=== PATIENT | male | born 1970 | race Caucasian/White ===

== ENCOUNTER → 2019-10-12 | Outpatient (CLI) | payer OTHER | END | disposition home or self-care (01) | LOC: OIH 11:07 | PROVIDERS: ATTEND Internal Medicine Cardiovascular Disease | DX: Z13.6 Encounter for screening for cardiovascular disorders (principal) | CPT/HCPCS: 75571 ==

== ENCOUNTER 2020-04-13 22:15 | Inpatient (IN) | payer BC, OTHER ==
[~2020-04-13] VITALS: Ht 175.3 cm; Wt 112.8 kg
[2020-04-13 23:36] LABS: BASOPHILS % (AUTO) 0.2 % (0.0-5.0); EOSINOPHILS % (AUTO) 0.1 % (0.0-8.0); HEMATOCRIT 43.4 % (42-54); LYMPHOCYTES % (AUTO) 8.4 % (21.0-51.0); MEAN CORPUSCULAR HEMOGLOBIN 26.8 pg (27.0-33.0); MEAN CORPUSCULAR HGB CONC 33.2 g/dL (32.0-36.0); MEAN CORPUSCULAR VOLUME 80.7 fL (79-99); MONOCYTES % (AUTO) 6.4 % (3.0-13.0); NEUTROPHILS % (AUTO) 84.2 % (40.0-77.0); PLATELET COUNT (AUTO) 228 K/uL (130-400); RED BLOOD CELL COUNT(AUTO) 5.38 MIL/uL (4.50-6.20); RED CELL DISTRIBUTION WIDTH 15.9 % (11.0-15.5)
[2020-04-14] MEDS ORDERED: CEFTRIAXONE SODIUM 2 GM VIAL ONE (00:01)
[2020-04-14] MEDS ORDERED: SODIUM CHLORIDE 0.9% 100 ML IV ONE (00:02)
[2020-04-14] MEDS ORDERED: DEXAMETHASONE SOD PHOSPHATE 10MG/ML 1ML VIAL ONE (00:04)
[2020-04-14 00:05] LABS: ALBUMIN 3.5 g/dL (3.5-5.0); BILIRUBIN,TOTAL 0.5 mg/dL (0.2-1.0); CREATININE 1.1 mg/dL (0.5-1.5)
[2020-04-14 00:08] LABS: POTASSIUM 2.6 mmol/L (3.5-5.1)
[2020-04-14 00:44] LABS: INR 0.89 (0.85-1.15); PARTIAL THROMBOPLASTIN TIME 34.8 SEC (26.3-35.5); PROTHROMBIN TIME 9.7 SEC (9.6-11.6)
[2020-04-14 00:45] LABS: ABG BASE EXCESS -1.1 mmol/L (-2.0-3.0); ABG HCO3 22.4 mmol/L (21.0-28.0); ABG OXYGEN SATURATION 95.6 % (95.0-99.0); ABG PCO2 34 mmHg (35-48)
[2020-04-14] MEDS ORDERED: POTASSIUM BICARB/CIT AC 25 MEQ TABLET.EFF ONE (00:47)
[2020-04-14] MEDS ORDERED: AZITHROMYCIN 500MG+NS 250ML 250 ML IV ONE (00:47)
[2020-04-14] MEDS ORDERED: SODIUM CHLORIDE 0.9% 500ML 500 ML IV ONE (00:48)
[2020-04-14 00:57] LABS: APPEARANCE,URINE Clear (CLEAR); BILIRUBIN,URINE Negative (NEGATIVE); COLOR,URINE Yellow (YELLOW); GLUCOSE, URINE (UA) Negative (NEGATIVE); KETONES,URINE Trace mg/dL (NEGATIVE); LEUKOCYTE ESTERASE ,URINE Negative (NEGATIVE); NITRATE,URINE Negative (NEGATIVE); OCCULT BLOOD,URINE Negative (NEGATIVE); PH,URINE 5.5 (5.0-8.0); PROTEIN,URINE POS 1+ mg/dL (NEGATIVE)
[2020-04-14] MEDS ORDERED: ONDANSETRON HCL 4 MG/2 ML VIAL ONE (01:20)
[2020-04-14 01:29] LABS: BACTERIA,URINE Few /HPF (None Seen); MUCUS,URINE Few LPF (None Seen); RBC,URINE 0-1 /HPF (0-1); SQUAMOUS EPITHELIAL CELL,UR 0-2 /HPF (0-2)
[2020-04-14] MEDS ORDERED: IOHEXOL-350 75 ML VIAL IV ONE (01:49)
[2020-04-14] MEDS ORDERED: CALCIUM CARBON 500MG CHEW TAB ONE (03:02)
[2020-04-14] MEDS ORDERED: DOXYCYCLINE 100MG+NS 250ML IV SCH (04:15)
[2020-04-14] MEDS: CEFTRIAXONE SODIUM 1 GM IVP SCH ×2 (04:15→16:15)
[2020-04-14] MEDS ORDERED: ACETAMINOPHEN 325 MG TAB PO PRN (04:15)
[2020-04-14] MEDS ORDERED: ERGOCALCIFEROL (VITAMIN D2) 50,000 UNIT CAPSULE PO SCH (04:15)
[2020-04-14] MEDS ORDERED: ALBUTEROL INHALER 90MCG/INH IH ONE (04:18)
[2020-04-14] MEDS ORDERED: DOXYCYCLINE 100MG+NS 250ML 250 ML IV ONE ×2 (04:22→16:17)
[2020-04-14] MEDS ORDERED: ERGOCALCIFEROL (VITAMIN D2) 50,000 UNIT CAPSULE ONE (04:22)
[2020-04-14] MEDS ORDERED: METHYLPREDNISOLONE SOD SUCC 40MG/ML 1ML ONE ×3 (04:24→19:17)
[2020-04-14] MEDS ORDERED: POTASSIUM CHLORIDE 10MEQ/100ML 100 ML IV PRN (04:45)
[2020-04-14] MEDS ORDERED: LIDOCAINE HCL-MPF 1% 2ML VIAL IV PRN (04:45)
[2020-04-14] MEDS ORDERED: POTASSIUM CHLORIDE 20 MEQ ERTAB PO PRN (04:45)
[2020-04-14] MEDS ORDERED: MAGNESIUM 2GM PREMIX 50ML 50 ML IV PRN (04:45)
[2020-04-14] MEDS ORDERED: POTASSIUM CHLORIDE 10% ELIXIR 20 MEQ/15 ML UDCUP PO PRN (04:45)
[2020-04-14 05:34] LABS: BASOPHILS % (AUTO) 0.1 % (0.0-5.0); HEMATOCRIT 42.8 % (42-54); LYMPHOCYTES % (AUTO) 5.5 % (21.0-51.0); MEAN CORPUSCULAR HEMOGLOBIN 26.8 pg (27.0-33.0); MEAN CORPUSCULAR HGB CONC 32.9 g/dL (32.0-36.0); MEAN CORPUSCULAR VOLUME 81.2 fL (79-99); MONOCYTES % (AUTO) 2.3 % (3.0-13.0); NEUTROPHILS % (AUTO) 91.2 % (40.0-77.0); PLATELET COUNT (AUTO) 224 K/uL (130-400); RED BLOOD CELL COUNT(AUTO) 5.27 MIL/uL (4.50-6.20); RED CELL DISTRIBUTION WIDTH 15.7 % (11.0-15.5); WHITE BLOOD COUNT (AUTO) 10.3 K/uL (4.8-10.8)
[2020-04-14 06:05] LABS: ALBUMIN 3.2 g/dL (3.5-5.0); BILIRUBIN,TOTAL 0.4 mg/dL (0.2-1.0); CRP QUANTITATIVE 119.1 mg/L (0.00-9.0); POTASSIUM 3.4 mmol/L (3.5-5.1); TOTAL PROTEIN, SERUM 7.8 g/dL (6.0-8.3)
[2020-04-14] MEDS: ASCORBIC ACID 500 MG TAB PO SCH (09:00)
[2020-04-14] MEDS: METHYLPREDNISOLONE SOD SUCC 40MG/ML 1ML IVP SCH ×3 (09:00→20:12)
[2020-04-14] MEDS: ENOXAPARIN SODIUM 40 MG/0.4 ML SYRINGE SQ SCH (09:00)
[2020-04-14] MEDS: DOXYCYCLINE 100MG+NS 250ML 250 ML IV SCH ×2 (09:00→20:24)
[2020-04-14] MEDS: FAMOTIDINE/PF 20 MG/2 ML VIAL IV SCH ×2 (09:00→20:13)
[2020-04-14] MEDS: ACETYLCYSTEINE 600 MG CAPSULE PO SCH ×2 (09:00→21:31)
[2020-04-14] MEDS: ZINC SULFATE 220 CAPSULE PO SCH (09:00)
[2020-04-14] MEDS ORDERED: ASCORBIC ACID 500 MG TAB ONE (09:06)
[2020-04-14] MEDS ORDERED: ACETYLCYSTEINE 600 MG CAPSULE ONE (09:07)
[2020-04-14] MEDS ORDERED: POTASSIUM CHLORIDE 20 MEQ ERTAB PO ONE (09:07)
[2020-04-14] MEDS ORDERED: ENOXAPARIN SODIUM 40 MG/0.4 ML SYRINGE SQ ONE (09:07)
[2020-04-14] MEDS ORDERED: ZINC SULFATE 220 CAPSULE ONE (09:07)
[2020-04-14] MEDS ORDERED: FAMOTIDINE/PF 20 MG/2 ML VIAL IV ONE ×2 (09:08→19:18)
[2020-04-14] MEDS ORDERED: CEFTRIAXONE SODIUM 1 GM ONE (12:21)
[2020-04-14] MEDS ORDERED: GUAIFENESIN-CODEINE 5 ML SYRUP ONE (12:39)
[2020-04-14] MEDS ORDERED: IVERMECTIN 3 MG TAB PO SCH (14:15)
[2020-04-14 20:05] VITALS: BP 165/78
[2020-04-14] MEDS: DOXYCYCLINE HYCLATE 100 MG TABLET PO SCH (21:28)
[2020-04-14 23:54] VITALS: BP 166/86
[2020-04-15] VITALS (7 sets, daily range): BP systolic 133–162; BP diastolic 67–96
[2020-04-15] MEDS ORDERED: OMEP20CA12 PO (00:08)
[2020-04-15] MEDS ORDERED: FERR325T22 PO (00:08)
[2020-04-15] MEDS ORDERED: AMLO5TAB9 PO (00:08)
[2020-04-15] MEDS ORDERED: BENZ-51 PO (00:08)
[2020-04-15] MEDS ORDERED: SIMV-46 PO (00:08)
[2020-04-15] MEDS: BENZONATATE 100 MG CAPSULE PO SCH ×4 (00:19→21:54)
[2020-04-15] MEDS: HYDRALAZINE HCL 20 MG/ML VIAL IV PRN ×2 (00:19→03:36)
--- NOTE | 2020-04-15 03:30 | NUR ---
STATUS UPDATE PT APPEARS RELAXED,AWAKE ,HR FLUCTUATES BETWEEN 105-140,DENIES ACUTE DISCOMFORT,DENIES PALPITATIONS, NOTED INHALER AT BEDSIDE,PT REPORTED HAVING TO USE 3PUFFS IN LESS THAN 2-3HOUR INTERVALS.ADVISED/INSTRUCTED PT NOT TO USE MEDICATIONS NOT INCLUDED IN REGIMEN PROVIDED BY MD. PT REITERATED THOUGH THAT HE WAS INSTRUCTED IN ER TO USE IF NECESSARY FOR SOB,UNCLEAR OTHERWISE IF FREQUENCY AND DOSAGE WAS EXPLAINED. EKG DONE PER PROTOCOL TO CONFIRM IRREGULAR HR. 0440 MD INFORMED OF PT STATUS WITH ORDERS. 0446 METOPROLOL 25MG PO BID SCHEDULED.STARTED A.M. DOSE AT THIS TIME WITH CLEARANCE FROM MD. TOLERATED BY PT. WILL CONTINUE TO MONITOR. NO ACUTE DISTRESS Addendum: 04/15/20 at 0511 by LARA BLOOD RN RN Amended: Links added.
[2020-04-15] MEDS: CEFTRIAXONE SODIUM 1 GM IVP SCH ×2 (03:46→21:54)
[2020-04-15] MEDS ORDERED: METOPROLOL TARTRATE 25 MG TAB ONE (04:46)
--- NOTE | 2020-04-15 05:12 | NUR ---
STATUS RECHECKED HR 107-114 AT THIS TIME ,PT RELAXED NO FURTHER COMPLAINTS.PT VERBALIZED UNDERSTANDING TO INFORM STAFF PRIOR TO TAKING ANY HOME REMEDIES AND REFRAIN FROM TAKING MEDICATIONS NOT PRESCRIBED IN MD POC
[2020-04-15 06:16] LABS: BASOPHILS % (AUTO) 0.2 % (0.0-5.0); EOSINOPHILS % (AUTO) 0.4 % (0.0-8.0); HEMATOCRIT 44.8 % (42-54); LYMPHOCYTES % (AUTO) 4.9 % (21.0-51.0); MEAN CORPUSCULAR HEMOGLOBIN 26.6 pg (27.0-33.0); MEAN CORPUSCULAR HGB CONC 32.4 g/dL (32.0-36.0); MEAN CORPUSCULAR VOLUME 82.1 fL (79-99); MONOCYTES % (AUTO) 5.5 % (3.0-13.0); NEUTROPHILS % (AUTO) 86.1 % (40.0-77.0); PLATELET COUNT (AUTO) 328 K/uL (130-400); RED BLOOD CELL COUNT(AUTO) 5.46 MIL/uL (4.50-6.20); RED CELL DISTRIBUTION WIDTH 16.1 % (11.0-15.5); WHITE BLOOD COUNT (AUTO) 21.5 K/uL (4.8-10.8)
[2020-04-15 06:46] LABS: ALBUMIN 3.3 g/dL (3.5-5.0); BILIRUBIN,TOTAL 0.3 mg/dL (0.2-1.0); CRP QUANTITATIVE 63.5 mg/L (0.00-9.0); POTASSIUM 3.7 mmol/L (3.5-5.1); TOTAL PROTEIN, SERUM 7.8 g/dL (6.0-8.3)
[2020-04-15] MEDS: METOPROLOL TARTRATE 25 MG TAB PO SCH ×2 (07:42→21:54)
[2020-04-15] MEDS: ACETAMINOPHEN 325 MG TAB PO PRN (07:52)
[2020-04-15] MEDS: METHYLPREDNISOLONE SOD SUCC 40MG/ML 1ML IVP SCH ×3 (08:11→21:54)
[2020-04-15] MEDS: FERROUS SULFATE 325 MG TABLET.DR PO SCH (08:11)
[2020-04-15] MEDS: DOXYCYCLINE HYCLATE 100 MG TABLET PO SCH ×2 (08:11→21:54)
[2020-04-15] MEDS: AMLODIPINE BESYLATE 5 MG TAB PO SCH (08:11)
[2020-04-15] MEDS: FAMOTIDINE/PF 20 MG/2 ML VIAL IV SCH ×2 (08:11→21:54)
[2020-04-15] MEDS: ENOXAPARIN SODIUM 40 MG/0.4 ML SYRINGE SQ SCH (08:12)
[2020-04-15] MEDS: ZINC SULFATE 220 CAPSULE PO SCH (08:12)
[2020-04-15] MEDS: ASCORBIC ACID 500 MG TAB PO SCH (08:12)
[2020-04-15] MEDS: ACETYLCYSTEINE 600 MG CAPSULE PO SCH ×3 (08:27→22:37)
[2020-04-15] MEDS ORDERED: BENZONATATE 100 MG CAPSULE PO SCH (10:30)
[2020-04-15] MEDS ORDERED: PHARMACY COMMUNICATION***REMDESIVIR ORDER MISC SCH (15:00)
[2020-04-15] MEDS ORDERED: PHARMACY COMMUNICATION MISC SCH (15:30)
[2020-04-15] MEDS ORDERED: REMDESIVIR (EUA) 520 200 MG in SODIUM CHLORIDE 0.9% 250 ML IV SCH (16:00)
--- NOTE | 2020-04-15 16:33 | NUR ---
INITIAL SW spoke with patient's spouse. Patient lives with spouse. He has no home services. DME: glucometer (no insulin), nebulizer, BPM. Patient is independent with ADL's and drives. 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 PCP is Dr. Rg Fall. Pharmacy is [facility] located on [facility]. DCP is home. Addendum: 04/15/20 at 1635 by CLOVER SÁNCHEZ SS Amended: Links added.
[2020-04-15 18:29] LABS: ABG BASE EXCESS 1.5 mmol/L (-2.0-3.0); ABG HCO3 24.8 mmol/L (21.0-28.0); ABG OXYGEN SATURATION 93.7 % (95.0-99.0); ABG PCO2 35 mmHg (35-48)
--- NOTE | 2020-04-15 20:45 | NUR ---
REPORT RECEIVED REPORT FROM LEESA ELDRIDGE. SEEN PT ON VIDEO AND NOTED TO BE ON 100% NON-REBREATHER. PT STILL WITH SOB EVEN AT REST. WILL MONITOR CLOSELY. Addendum: 04/15/20 at 2322 by JW DURAN RN RN Amended: Links added.
--- NOTE | 2020-04-15 21:54 | NUR ---
MEDS SHIFT ASSESSMENT DONE, PLEASE REFER TO CHART. DUE MEDS ADMINISTERED, TOLERATED WELL. CALL LIGHT WITHIN REACH. WILL MONITOR PT. PT ASK ABOUT PLASMA TRANSFUSION AND ASSURED THAT IT WILL BE TRANSFUSED SOON IS DEFROSTED. Addendum: 04/15/20 at 2336 by JW DURAN RN RN Amended: Links added.
[2020-04-15] MEDS: ENOXAPARIN SODIUM 120 MG/0.8ML SQ SCH (21:55)
--- NOTE | 2020-04-15 22:20 | NUR ---
PLASMA CHECKED FIRST UNIT OF PLASMA WITH LEESA ZUÑIGA. V/S MONITORED, STABLE. STARTED TRANSFUSION. WILL MONITOR CLOSELY.
--- NOTE | 2020-04-15 23:00 | NUR ---
MONITOR PT TOLERATING PLASMA TRANSFUSION WELL. V/S MONITORED, STABLE. KEPT COMFORTABLE IN BED WITH HOB ELEVATED. WILL CONTINUE TO MONITOR.
--- NOTE | 2020-04-16 00:40 | NUR ---
FINISH PLASMA TRANSFUSION COMPLETED. V/S MONITORED, NOTED O2 SAT=87-88% ON 100% NON-REBREATHER. PT IS HAVING TACHYPNEA AT THIS TIME WITH RR=40 PER MINUTE. ENCOURAGED PT TO TRY DEEP BREATHING AND SLOW DONE HIS BREATHING. O2 SAT STILL LOW. CALLED RT AND INFORMED OF NEED TO PLACE PT ON BIPAP. RT ADRIA IN TO SET UP BIPAP.
--- NOTE | 2020-04-16 01:15 | NUR ---
DINO COVINGTON SET UP BIPAP ON PT WITH SETTINGS 16/6, 12, 100% AND PT'S O2 SAT INCREASED TO 97%. PT IS FEELING ANXIOUS. PAGED DR ROBERTA MD FINANCE TEACHER FOR HOSPITALIST, VIA ANSWERING SERVICE. CALLED BACK AND REFERRED PT'S SOB WITH ANXIETY. NEW MEDS ORDERED, PLEASE REFER TO CPOE. WILL MEDICATE PT.
[2020-04-16] MEDS ORDERED: MORPHINE SULFATE 2 MG/ML 1ML SYG ONE (01:24)
[2020-04-16 03:28] VITALS: BP 152/84
[2020-04-16] MEDS: GUAIFENESIN-DM 200/20 MG 10 ML PO PRN ×3 (05:36→18:27)
[2020-04-16] MEDS: BENZONATATE 100 MG CAPSULE PO SCH ×3 (05:36→20:17)
[2020-04-16] MEDS: METHYLPREDNISOLONE SOD SUCC 40MG/ML 1ML IVP SCH ×3 (05:36→20:16)
--- NOTE | 2020-04-16 05:36 | NUR ---
MEDS AWAKENED PT FOR DUE MEDS, TOLERATED WELL. STILL WITH SOB OFF THE BIPAP AND DESATS TO 88%. FIXED MASK AND KEPT ON HIGH REED'S POSITION. FOR MORE CARE.
[2020-04-16 05:50] LABS: BASOPHILS % (AUTO) 0.4 % (0.0-5.0); EOSINOPHILS % (AUTO) 0.3 % (0.0-8.0); HEMATOCRIT 42.4 % (42-54); MEAN CORPUSCULAR HEMOGLOBIN 26.6 pg (27.0-33.0); MEAN CORPUSCULAR HGB CONC 32.8 g/dL (32.0-36.0); MEAN CORPUSCULAR VOLUME 81.2 fL (79-99); MONOCYTES % (AUTO) 4.9 % (3.0-13.0); NEUTROPHILS % (AUTO) 85.6 % (40.0-77.0); PLATELET COUNT (AUTO) 378 K/uL (130-400); RED BLOOD CELL COUNT(AUTO) 5.22 MIL/uL (4.50-6.20); RED CELL DISTRIBUTION WIDTH 16.3 % (11.0-15.5); WHITE BLOOD COUNT (AUTO) 28.8 K/uL (4.8-10.8)
[2020-04-16 06:24] LABS: BILIRUBIN,TOTAL 0.4 mg/dL (0.2-1.0); CREATININE 1.1 mg/dL (0.5-1.5); CRP QUANTITATIVE 68.6 mg/L (0.00-9.0); POTASSIUM 3.8 mmol/L (3.5-5.1); TOTAL PROTEIN, SERUM 7.5 g/dL (6.0-8.3)
[2020-04-16 08:00] VITALS: BP 142/81
[2020-04-16] MEDS: PHARMACY COMMUNICATION MISC SCH ×3 (08:15→23:42)
[2020-04-16] MEDS: CEFTRIAXONE SODIUM 1 GM IVP SCH ×2 (09:12→20:16)
[2020-04-16] MEDS: FERROUS SULFATE 325 MG TABLET.DR PO SCH (09:13)
[2020-04-16] MEDS: AMLODIPINE BESYLATE 5 MG TAB PO SCH (09:13)
[2020-04-16] MEDS: DOXYCYCLINE HYCLATE 100 MG TABLET PO SCH ×2 (09:13→20:17)
[2020-04-16] MEDS: METOPROLOL TARTRATE 25 MG TAB PO SCH ×2 (09:13→20:17)
[2020-04-16] MEDS: ZINC SULFATE 220 CAPSULE PO SCH (09:13)
[2020-04-16] MEDS: FAMOTIDINE/PF 20 MG/2 ML VIAL IV SCH ×2 (09:14→20:16)
[2020-04-16] MEDS: ASCORBIC ACID 500 MG TAB PO SCH (09:14)
--- NOTE | 2020-04-16 10:40 | NUR ---
PT C/O ANXIETY CALLED JERSON PAGAN. STATES OKAY TO GIVE TOM ORDER ENTERED. Addendum: 04/16/20 at 1123 by THEODORA MORIN RN RN WBC ALSO AWARE OF 28 STATES I WILL ENTER MORE ORDERS.
[2020-04-16 11:00] VITALS: BP 132/90
[2020-04-16] MEDS ORDERED: ALPRAZOLAM 0.25 MG TABLET ONE (11:06)
[2020-04-16] MEDS: ACETYLCYSTEINE 600 MG CAPSULE PO SCH ×2 (11:15→20:17)
[2020-04-16] MEDS: ONDANSETRON HCL 4 MG/2 ML VIAL IV PRN (12:09)
[2020-04-16] MEDS ORDERED: COMPOUND IV REFRIGERATED 1 EACH IVSOLN MISC PRN (12:30)
--- NOTE | 2020-04-16 12:34 | NUR ---
ASSISTED PT TO BEDSIDE COMMODE AND BACK TO BED, NOW WITH RESPIRATIONS 28-30. 02 SATS 98% ON BIPAP 100%. NOW COMPLAINING OF NAUSEA. ZOFRAN GIVEN. AFTER 2-5 MINUTES LATER STATES HE FEELS BETTER AND IS LESS SOB. INSTRUCTED THAT HE MIGHT NEED TO START USING A BED COHN DUE TO SOB.
[2020-04-16 16:00] VITALS: BP 130/82
[2020-04-16] MEDS: REMDESIVIR (EUA) 520 100 MG in SODIUM CHLORIDE 0.9% 250 ML IV SCH (16:09)
[2020-04-16 20:12] VITALS: BP 130/83
[2020-04-16] MEDS: ENOXAPARIN SODIUM 120 MG/0.8ML SQ SCH (20:17)
[2020-04-16] MEDS: ALPRAZOLAM 0.25 MG TABLET PO PRN (20:17)
[2020-04-16] MEDS: MORPHINE SULFATE 2 MG/ML 1ML SYG IVP PRN (20:30)
[2020-04-17 00:12] VITALS: BP 139/54
[2020-04-17] MEDS: MORPHINE SULFATE 2 MG/ML 1ML SYG IVP PRN (01:29)
[2020-04-17 04:12] VITALS: BP 135/70
[2020-04-17] MEDS: METHYLPREDNISOLONE SOD SUCC 40MG/ML 1ML IVP SCH ×3 (05:50→23:01)
[2020-04-17] MEDS: BENZONATATE 100 MG CAPSULE PO SCH ×3 (05:50→23:01)
[2020-04-17] MEDS: ALPRAZOLAM 0.25 MG TABLET PO PRN ×2 (06:02→18:16)
[2020-04-17 07:45] VITALS: BP 137/75
[2020-04-17 08:00] LABS: BASOPHILS % (AUTO) 0.2 % (0.0-5.0); HEMATOCRIT 44.7 % (42-54); LYMPHOCYTES % (AUTO) 5.9 % (21.0-51.0); MEAN CORPUSCULAR HEMOGLOBIN 26.6 pg (27.0-33.0); MEAN CORPUSCULAR VOLUME 83.2 fL (79-99); MONOCYTES % (AUTO) 5.2 % (3.0-13.0); NEUTROPHILS % (AUTO) 81.7 % (40.0-77.0); PLATELET COUNT (AUTO) 437 K/uL (130-400); RED BLOOD CELL COUNT(AUTO) 5.37 MIL/uL (4.50-6.20); RED CELL DISTRIBUTION WIDTH 16.8 % (11.0-15.5); WHITE BLOOD COUNT (AUTO) 25.7 K/uL (4.8-10.8)
[2020-04-17 08:21] LABS: CRP QUANTITATIVE 62.3 mg/L (0.00-9.0)
[2020-04-17] MEDS: AMLODIPINE BESYLATE 5 MG TAB PO SCH (09:11)
[2020-04-17] MEDS: ACETYLCYSTEINE 600 MG CAPSULE PO SCH ×2 (09:11→20:09)
[2020-04-17] MEDS: ASCORBIC ACID 500 MG TAB PO SCH (09:11)
[2020-04-17] MEDS: CEFTRIAXONE SODIUM 1 GM IVP SCH ×2 (09:11→20:08)
[2020-04-17] MEDS: FERROUS SULFATE 325 MG TABLET.DR PO SCH (09:11)
[2020-04-17] MEDS: FAMOTIDINE/PF 20 MG/2 ML VIAL IV SCH ×2 (09:11→20:08)
[2020-04-17] MEDS: ZINC SULFATE 220 CAPSULE PO SCH (09:11)
[2020-04-17] MEDS: METOPROLOL TARTRATE 25 MG TAB PO SCH ×2 (09:11→20:09)
[2020-04-17] MEDS: DOXYCYCLINE HYCLATE 100 MG TABLET PO SCH ×2 (09:11→20:09)
[2020-04-17] MEDS: PHARMACY COMMUNICATION MISC SCH ×4 (10:03→23:54)
[2020-04-17] MEDS: ONDANSETRON HCL 4 MG/2 ML VIAL IV PRN (10:05)
[2020-04-17 11:00] VITALS: BP 143/72
[2020-04-17 16:00] VITALS: BP 144/85
[2020-04-17] MEDS: REMDESIVIR (EUA) 520 100 MG in SODIUM CHLORIDE 0.9% 250 ML IV SCH (17:37)
[2020-04-17] MEDS: ENOXAPARIN SODIUM 120 MG/0.8ML SQ SCH (20:09)
[2020-04-17 20:16] VITALS: BP 118/49
[2020-04-18] VITALS (7 sets, daily range): BP systolic 102–141; BP diastolic 50–82
[2020-04-18] MEDS: METHYLPREDNISOLONE SOD SUCC 40MG/ML 1ML IVP SCH ×3 (06:19→21:09)
[2020-04-18] MEDS: BENZONATATE 100 MG CAPSULE PO SCH ×3 (06:19→21:08)
[2020-04-18 07:41] LABS: BASOPHILS % (AUTO) 0.1 % (0.0-5.0); HEMATOCRIT 43.2 % (42-54); LYMPHOCYTES % (AUTO) 5.9 % (21.0-51.0); MEAN CORPUSCULAR HEMOGLOBIN 26.6 pg (27.0-33.0); MEAN CORPUSCULAR HGB CONC 31.9 g/dL (32.0-36.0); MEAN CORPUSCULAR VOLUME 83.4 fL (79-99); MONOCYTES % (AUTO) 5.1 % (3.0-13.0); NEUTROPHILS % (AUTO) 80.5 % (40.0-77.0); PLATELET COUNT (AUTO) 467 K/uL (130-400); RED BLOOD CELL COUNT(AUTO) 5.18 MIL/uL (4.50-6.20); RED CELL DISTRIBUTION WIDTH 16.2 % (11.0-15.5); WHITE BLOOD COUNT (AUTO) 28.1 K/uL (4.8-10.8)
[2020-04-18 07:51] LABS: CRP QUANTITATIVE 34.9 mg/L (0.00-9.0)
[2020-04-18] MEDS: ACETYLCYSTEINE 600 MG CAPSULE PO SCH ×2 (09:43→21:11)
[2020-04-18] MEDS: FAMOTIDINE/PF 20 MG/2 ML VIAL IV SCH ×2 (09:43→21:06)
[2020-04-18] MEDS: CEFTRIAXONE SODIUM 1 GM IVP SCH ×2 (09:43→21:08)
[2020-04-18] MEDS: METOPROLOL TARTRATE 25 MG TAB PO SCH ×2 (09:43→21:08)
[2020-04-18] MEDS: AMLODIPINE BESYLATE 5 MG TAB PO SCH (09:44)
[2020-04-18] MEDS: DOXYCYCLINE HYCLATE 100 MG TABLET PO SCH ×2 (09:44→21:08)
[2020-04-18] MEDS: ASCORBIC ACID 500 MG TAB PO SCH (09:44)
[2020-04-18] MEDS: ZINC SULFATE 220 CAPSULE PO SCH (09:44)
[2020-04-18] MEDS: FERROUS SULFATE 325 MG TABLET.DR PO SCH (09:44)
--- NOTE | 2020-04-18 10:30 | NUR ---
BIPAP BURT PRIETO MERCHANDISER RETAIL REPRESENTATIVE CHANGED SETTING TO 90% FROM 100%. PT TOLERATING BIPAP, WILL CONTINUE TO MONITOR.
--- NOTE | 2020-04-18 11:13 | NUR ---
BIPAP PT IN PRONE POSITION DOING WELL SPO2 96%
[2020-04-18] MEDS: PHARMACY COMMUNICATION MISC SCH ×2 (15:47→23:16)
[2020-04-18] MEDS ORDERED: SODIUM CHLORIDE 0.9% 250 ML IV ONE (15:49)
[2020-04-18] MEDS: REMDESIVIR (EUA) 520 100 MG in SODIUM CHLORIDE 0.9% 250 ML IV SCH (15:53)
[2020-04-18] MEDS: ALPRAZOLAM 0.25 MG TABLET PO PRN ×2 (16:00→21:06)
[2020-04-18] MEDS: ALBUTEROL INHALER 90MCG/INH IH SCH ×3 (17:48→21:14)
[2020-04-18] MEDS ORDERED: IPRATROPIUM 0.5 MG/2.5 ML INH IH SCH (18:00)
[2020-04-18] MEDS: ENOXAPARIN SODIUM 120 MG/0.8ML SQ SCH (21:06)
[2020-04-19] MEDS: ALBUTEROL INHALER 90MCG/INH IH SCH ×6 (01:08→22:05)
[2020-04-19 04:05] VITALS: BP 125/74
[2020-04-19] MEDS: ALPRAZOLAM 0.25 MG TABLET PO PRN ×2 (05:35→17:11)
[2020-04-19] MEDS: BENZONATATE 100 MG CAPSULE PO SCH ×3 (05:38→21:42)
[2020-04-19] MEDS: METHYLPREDNISOLONE SOD SUCC 40MG/ML 1ML IVP SCH ×3 (05:39→21:42)
[2020-04-19 07:18] LABS: BASOPHILS % (AUTO) 0.1 % (0.0-5.0); HEMATOCRIT 43.2 % (42-54); LYMPHOCYTES % (AUTO) 5.8 % (21.0-51.0); MEAN CORPUSCULAR HEMOGLOBIN 26.8 pg (27.0-33.0); MEAN CORPUSCULAR HGB CONC 32.4 g/dL (32.0-36.0); MEAN CORPUSCULAR VOLUME 82.8 fL (79-99); MONOCYTES % (AUTO) 5.5 % (3.0-13.0); NEUTROPHILS % (AUTO) 77.5 % (40.0-77.0); PLATELET COUNT (AUTO) 474 K/uL (130-400); RED BLOOD CELL COUNT(AUTO) 5.22 MIL/uL (4.50-6.20); WHITE BLOOD COUNT (AUTO) 26.3 K/uL (4.8-10.8)
[2020-04-19 07:41] LABS: ALBUMIN 2.5 g/dL (3.5-5.0); BILIRUBIN,DIRECT 0.1 mg/dL (0.0-0.3); BILIRUBIN,TOTAL 0.4 mg/dL (0.2-1.0); TOTAL PROTEIN, SERUM 6.6 g/dL (6.0-8.3)
[2020-04-19 07:58] LABS: POTASSIUM 4.3 mmol/L (3.5-5.1)
[2020-04-19] MEDS: PHARMACY COMMUNICATION MISC SCH ×2 (08:16→17:11)
[2020-04-19 08:21] VITALS: BP 133/83
[2020-04-19] MEDS: DOXYCYCLINE HYCLATE 100 MG TABLET PO SCH ×2 (08:40→21:41)
[2020-04-19] MEDS: METOPROLOL TARTRATE 25 MG TAB PO SCH ×2 (08:40→21:41)
[2020-04-19] MEDS: ACETYLCYSTEINE 600 MG CAPSULE PO SCH ×2 (08:40→21:41)
[2020-04-19] MEDS: ZINC SULFATE 220 CAPSULE PO SCH (08:40)
[2020-04-19] MEDS: ASCORBIC ACID 500 MG TAB PO SCH (08:40)
[2020-04-19] MEDS: FAMOTIDINE/PF 20 MG/2 ML VIAL IV SCH ×2 (08:41→21:42)
[2020-04-19] MEDS: AMLODIPINE BESYLATE 5 MG TAB PO SCH (08:41)
[2020-04-19] MEDS: FERROUS SULFATE 325 MG TABLET.DR PO SCH (08:41)
[2020-04-19] MEDS: CEFTRIAXONE SODIUM 1 GM IVP SCH ×2 (09:11→21:44)
[2020-04-19 12:11] VITALS: BP 153/77
[2020-04-19] MEDS ORDERED: SODIUM CHLORIDE 0.9% 500ML 500 ML IV ONE (13:26)
[2020-04-19 16:56] VITALS: BP 165/95
[2020-04-19] MEDS: REMDESIVIR (EUA) 520 100 MG in SODIUM CHLORIDE 0.9% 250 ML IV SCH (17:11)
[2020-04-19 19:15] VITALS: BP 148/74
[2020-04-19] MEDS: ENOXAPARIN SODIUM 120 MG/0.8ML SQ SCH (21:43)
[2020-04-20] VITALS (7 sets, daily range): BP systolic 125–145; BP diastolic 64–85
[2020-04-20] MEDS: PHARMACY COMMUNICATION MISC SCH ×3 (02:14→14:56)
[2020-04-20] MEDS: ALBUTEROL INHALER 90MCG/INH IH SCH ×6 (02:14→22:11)
[2020-04-20] MEDS: METHYLPREDNISOLONE SOD SUCC 40MG/ML 1ML IVP SCH ×2 (05:51→14:48)
[2020-04-20] MEDS: BENZONATATE 100 MG CAPSULE PO SCH ×3 (05:52→22:08)
[2020-04-20] MEDS: ASCORBIC ACID 500 MG TAB PO SCH (09:39)
[2020-04-20] MEDS: FAMOTIDINE/PF 20 MG/2 ML VIAL IV SCH ×2 (09:39→22:09)
[2020-04-20] MEDS: ACETYLCYSTEINE 600 MG CAPSULE PO SCH ×2 (09:39→22:08)
[2020-04-20] MEDS: CEFTRIAXONE SODIUM 1 GM IVP SCH ×2 (09:39→22:08)
[2020-04-20] MEDS: AMLODIPINE BESYLATE 5 MG TAB PO SCH (09:39)
[2020-04-20] MEDS: DOXYCYCLINE HYCLATE 100 MG TABLET PO SCH ×2 (09:39→22:09)
[2020-04-20] MEDS: FERROUS SULFATE 325 MG TABLET.DR PO SCH (09:39)
[2020-04-20] MEDS: METOPROLOL TARTRATE 25 MG TAB PO SCH ×2 (09:40→22:09)
[2020-04-20] MEDS: ZINC SULFATE 220 CAPSULE PO SCH (09:40)
[2020-04-20] MEDS: ENOXAPARIN SODIUM 120 MG/0.8ML SQ SCH (22:10)
[2020-04-21] MEDS: PHARMACY COMMUNICATION MISC SCH ×4 (00:15→21:38)
[2020-04-21] MEDS: ALBUTEROL INHALER 90MCG/INH IH SCH ×6 (02:06→21:37)
[2020-04-21 03:49] VITALS: BP 153/72
[2020-04-21] MEDS: BENZONATATE 100 MG CAPSULE PO SCH ×3 (05:56→21:35)
[2020-04-21 06:03] LABS: ALBUMIN 2.6 g/dL (3.5-5.0); BILIRUBIN,TOTAL 0.6 mg/dL (0.2-1.0); POTASSIUM 4.7 mmol/L (3.5-5.1); TOTAL PROTEIN, SERUM 6.8 g/dL (6.0-8.3)
[2020-04-21 08:00] VITALS: BP 98/54
[2020-04-21] MEDS: DEXAMETHASONE SOD PHOSPHATE 4 MG/ML 1ML VIAL IVP SCH (09:00)
[2020-04-21] MEDS: DOXYCYCLINE HYCLATE 100 MG TABLET PO SCH ×2 (09:00→21:35)
[2020-04-21] MEDS: FAMOTIDINE/PF 20 MG/2 ML VIAL IV SCH ×3 (09:00→21:34)
[2020-04-21] MEDS: ACETYLCYSTEINE 600 MG CAPSULE PO SCH ×3 (09:00→21:35)
[2020-04-21] MEDS: FERROUS SULFATE 325 MG TABLET.DR PO SCH (11:04)
[2020-04-21] MEDS: ZINC SULFATE 220 CAPSULE PO SCH (11:06)
[2020-04-21] MEDS: ASCORBIC ACID 500 MG TAB PO SCH (11:06)
[2020-04-21 12:00] VITALS: BP 110/68
[2020-04-21] MEDS: METOPROLOL TARTRATE 25 MG TAB PO SCH ×2 (13:23→21:35)
[2020-04-21] MEDS: AMLODIPINE BESYLATE 5 MG TAB PO SCH (13:24)
[2020-04-21 16:00] VITALS: BP 114/71
[2020-04-21] MEDS: ONDANSETRON HCL 4 MG/2 ML VIAL IV PRN (16:24)
[2020-04-21 19:50] VITALS: BP 104/49
[2020-04-21] MEDS: ENOXAPARIN SODIUM 120 MG/0.8ML SQ SCH (21:37)
[2020-04-21 23:59] VITALS: BP 123/59
[2020-04-22] MEDS: ALBUTEROL INHALER 90MCG/INH IH SCH ×5 (02:25→21:29)
[2020-04-22 03:50] VITALS: BP 103/61
[2020-04-22] MEDS: BENZONATATE 100 MG CAPSULE PO SCH ×3 (06:40→21:33)
[2020-04-22 06:53] LABS: BASOPHILS % (AUTO) 0.7 % (0.0-5.0); EOSINOPHILS % (AUTO) 0.9 % (0.0-8.0); HEMATOCRIT 43.2 % (42-54); LYMPHOCYTES % (AUTO) 7.4 % (21.0-51.0); MEAN CORPUSCULAR HEMOGLOBIN 26.9 pg (27.0-33.0); MEAN CORPUSCULAR HGB CONC 32.4 g/dL (32.0-36.0); MEAN CORPUSCULAR VOLUME 82.9 fL (79-99); MONOCYTES % (AUTO) 3.7 % (3.0-13.0); NEUTROPHILS % (AUTO) 77.6 % (40.0-77.0); PLATELET COUNT (AUTO) 408 K/uL (130-400); RED BLOOD CELL COUNT(AUTO) 5.21 MIL/uL (4.50-6.20); RED CELL DISTRIBUTION WIDTH 15.7 % (11.0-15.5); WHITE BLOOD COUNT (AUTO) 22.4 K/uL (4.8-10.8)
[2020-04-22 08:00] VITALS: BP 102/61
[2020-04-22] MEDS: PHARMACY COMMUNICATION MISC SCH (08:15)
[2020-04-22] MEDS: METOPROLOL TARTRATE 25 MG TAB PO SCH ×2 (09:21→21:31)
[2020-04-22] MEDS: ACETYLCYSTEINE 600 MG CAPSULE PO SCH ×2 (09:21→21:32)
[2020-04-22] MEDS: AMLODIPINE BESYLATE 5 MG TAB PO SCH (09:21)
[2020-04-22] MEDS: ZINC SULFATE 220 CAPSULE PO SCH (09:21)
[2020-04-22] MEDS: ASCORBIC ACID 500 MG TAB PO SCH (09:21)
[2020-04-22] MEDS: DOXYCYCLINE HYCLATE 100 MG TABLET PO SCH ×2 (09:22→21:31)
[2020-04-22] MEDS: DEXAMETHASONE SOD PHOSPHATE 4 MG/ML 1ML VIAL IVP SCH (09:22)
[2020-04-22] MEDS: FAMOTIDINE/PF 20 MG/2 ML VIAL IV SCH ×2 (09:22→21:30)
[2020-04-22] MEDS: FERROUS SULFATE 325 MG TABLET.DR PO SCH (09:22)
[2020-04-22 12:00] VITALS: BP 128/67
[2020-04-22 16:00] VITALS: BP 96/41
[2020-04-22 19:50] VITALS: BP 120/57
[2020-04-22] MEDS: ENOXAPARIN SODIUM 120 MG/0.8ML SQ SCH (21:33)
[2020-04-22 23:31] VITALS: BP 117/63
[2020-04-23] MEDS: PHARMACY COMMUNICATION MISC SCH (00:42)
[2020-04-23] MEDS: ALBUTEROL INHALER 90MCG/INH IH SCH ×2 (02:19→05:47)
[2020-04-23 04:00] VITALS: BP 119/63
[2020-04-23 05:22] LABS: BASOPHILS % (AUTO) 0.8 % (0.0-5.0); EOSINOPHILS % (AUTO) 0.5 % (0.0-8.0); HEMATOCRIT 42.7 % (42-54); LYMPHOCYTES % (AUTO) 6.4 % (21.0-51.0); MEAN CORPUSCULAR HEMOGLOBIN 26.8 pg (27.0-33.0); MEAN CORPUSCULAR HGB CONC 32.8 g/dL (32.0-36.0); MEAN CORPUSCULAR VOLUME 81.8 fL (79-99); MONOCYTES % (AUTO) 3.5 % (3.0-13.0); NEUTROPHILS % (AUTO) 79.5 % (40.0-77.0); PLATELET COUNT (AUTO) 390 K/uL (130-400); RED BLOOD CELL COUNT(AUTO) 5.22 MIL/uL (4.50-6.20); RED CELL DISTRIBUTION WIDTH 15.9 % (11.0-15.5); WHITE BLOOD COUNT (AUTO) 21.9 K/uL (4.8-10.8)
[2020-04-23 05:59] LABS: ALBUMIN 2.1 g/dL (3.5-5.0); BILIRUBIN,TOTAL 0.9 mg/dL (0.2-1.0); CREATININE 0.9 mg/dL (0.5-1.5); POTASSIUM 4.7 mmol/L (3.5-5.1); TOTAL PROTEIN, SERUM 6.1 g/dL (6.0-8.3)
[2020-04-23] MEDS: BENZONATATE 100 MG CAPSULE PO SCH ×3 (06:03→21:04)
[2020-04-23 08:00] VITALS: BP 104/56
[2020-04-23] MEDS: AMLODIPINE BESYLATE 5 MG TAB PO SCH (09:00)
[2020-04-23] MEDS: METOPROLOL TARTRATE 25 MG TAB PO SCH ×2 (09:00→20:51)
[2020-04-23] MEDS: FERROUS SULFATE 325 MG TABLET.DR PO SCH (09:57)
[2020-04-23] MEDS: ZINC SULFATE 220 CAPSULE PO SCH (09:57)
[2020-04-23] MEDS: DOXYCYCLINE HYCLATE 100 MG TABLET PO SCH ×2 (09:57→20:51)
[2020-04-23] MEDS: FAMOTIDINE/PF 20 MG/2 ML VIAL IV SCH ×2 (09:57→20:50)
[2020-04-23] MEDS: ASCORBIC ACID 500 MG TAB PO SCH (09:57)
[2020-04-23] MEDS: ACETYLCYSTEINE 600 MG CAPSULE PO SCH ×2 (09:58→20:55)
[2020-04-23] MEDS: DEXAMETHASONE SOD PHOSPHATE 4 MG/ML 1ML VIAL IVP SCH (09:59)
[2020-04-23 12:00] VITALS: BP 122/77
[2020-04-23 16:00] VITALS: BP 117/72
[2020-04-23 19:30] VITALS: BP 110/60
[2020-04-23] MEDS: ENOXAPARIN SODIUM 120 MG/0.8ML SQ SCH (20:52)
[2020-04-23] MEDS: ALPRAZOLAM 0.25 MG TABLET PO PRN (21:13)
[2020-04-24] VITALS: BP 116/71
[2020-04-24 04:47] VITALS: BP 106/75
[2020-04-24] MEDS: BENZONATATE 100 MG CAPSULE PO SCH ×3 (05:15→21:27)
[2020-04-24] MEDS: ALPRAZOLAM 0.25 MG TABLET PO PRN ×2 (05:28→20:28)
[2020-04-24 05:50] LABS: BASOPHILS % (AUTO) 0.7 % (0.0-5.0); EOSINOPHILS % (AUTO) 1.2 % (0.0-8.0); HEMATOCRIT 43.5 % (42-54); LYMPHOCYTES % (AUTO) 6.5 % (21.0-51.0); MEAN CORPUSCULAR HEMOGLOBIN 26.9 pg (27.0-33.0); MEAN CORPUSCULAR HGB CONC 32.6 g/dL (32.0-36.0); MEAN CORPUSCULAR VOLUME 82.4 fL (79-99); MONOCYTES % (AUTO) 3.6 % (3.0-13.0); PLATELET COUNT (AUTO) 348 K/uL (130-400); RED BLOOD CELL COUNT(AUTO) 5.28 MIL/uL (4.50-6.20); RED CELL DISTRIBUTION WIDTH 15.8 % (11.0-15.5); WHITE BLOOD COUNT (AUTO) 21.2 K/uL (4.8-10.8)
[2020-04-24 06:37] LABS: ALBUMIN 2.2 g/dL (3.5-5.0); BILIRUBIN,TOTAL 0.9 mg/dL (0.2-1.0); CREATININE 0.9 mg/dL (0.5-1.5); POTASSIUM 4.7 mmol/L (3.5-5.1); TOTAL PROTEIN, SERUM 6.2 g/dL (6.0-8.3)
[2020-04-24 08:18] VITALS: BP 117/64
[2020-04-24] MEDS: METOPROLOL TARTRATE 25 MG TAB PO SCH ×2 (09:00→20:28)
[2020-04-24] MEDS: AMLODIPINE BESYLATE 5 MG TAB PO SCH (09:00)
[2020-04-24] MEDS: FAMOTIDINE/PF 20 MG/2 ML VIAL IV SCH ×2 (09:08→20:28)
[2020-04-24] MEDS: ASCORBIC ACID 500 MG TAB PO SCH (09:08)
[2020-04-24] MEDS: DEXAMETHASONE SOD PHOSPHATE 4 MG/ML 1ML VIAL IVP SCH (09:08)
[2020-04-24] MEDS: ZINC SULFATE 220 CAPSULE PO SCH (09:08)
[2020-04-24] MEDS: FERROUS SULFATE 325 MG TABLET.DR PO SCH (09:08)
[2020-04-24] MEDS: DOXYCYCLINE HYCLATE 100 MG TABLET PO SCH (09:09)
[2020-04-24] MEDS: ONDANSETRON HCL 4 MG/2 ML VIAL IV PRN ×2 (10:30→21:26)
[2020-04-24 10:34] VITALS: BP 113/43
[2020-04-24] MEDS: ACETYLCYSTEINE 20% 200MG/ML 4ML VIAL PO SCH ×2 (11:05→20:28)
[2020-04-24] MEDS: ACETAMINOPHEN 325 MG TAB PO PRN (16:01)
--- NOTE | 2020-04-24 16:12 | NUR ---
Nutrition Note: RD screened patient due to LOS x11 days and no consult. Pt on CLD x11 days and inability to advance diet to a solid meal due to respiratory distress. Per CAFETERIA COUNTER ATTENDANT, difficulty with meal intake is seen. Recommend: Initiate TF at 15 ml/hr for 24 hrs and monitor tolerance. If patient is to remain in a supine position, recommend advance to goal rate of 60ml/hr to meet daily needs. If pt requires prone positioning, decrease goal rate to 15ml/hr and consult RD to adjust needs. H20 flushes of 200ml q 6 hrs, total H20: 1967ml ,monitor hydration status. Add vit D 1000IU daily F/U 1-3 days Addendum: 04/24/20 at [address] Amended: Links added.
[2020-04-24 16:25] VITALS: BP 121/70
[2020-04-24 20:19] VITALS: BP 104/63
[2020-04-24] MEDS: GUAIFENESIN-DM 200/20 MG 10 ML PO PRN (20:28)
[2020-04-24] MEDS: ENOXAPARIN SODIUM 120 MG/0.8ML SQ SCH (20:29)
--- NOTE | 2020-04-24 20:30 | NUR ---
MEDS SHIFT ASSESSMENT DONE, PLEASE REFER TO CPOE. DUE MEDS ADMINISTERED, TOLERATED WELL. KEPT ON HIGH FLOW O2 AND NON-REBREATHER. KEPT COMFORTABLY IN BED WITH HOB ELEVATED. CALL LIGHT WITHIN REACH. WILL MONITOR PT. Addendum: 04/24/20 at 2254 by JW DURAN RN RN Amended: Links added.
[2020-04-24] MEDS: ALBUTEROL INHALER 90MCG/INH IH SCH (21:27)
--- NOTE | 2020-04-24 21:30 | NUR ---
NAUSEA PT COMPLAINTS OF NAUSEA BUT NO EMESIS. STILL WITH SOB AT REST. DUE MEDS ADMINISTERED, ZOFRAN IV GIVEN FOR NAUSEA. WILL RE-ASSESS PT.
[2020-04-25] VITALS (7 sets, daily range): BP systolic 98–125; BP diastolic 48–69
--- NOTE | 2020-04-25 01:30 | NUR ---
SOB PT CALLS AND NOTED TO BE HAVING SOB. O2 SAT CHECKED=80%. RE-POSITIONED PT IN BED WITH HOB ELEVATED. MAINTAINED ON HIGH FLOW O2 AT 100%, NON-REBREATHER. ENCOURAGED TO TRY TO RELAX. VENTOLIN PUFF ADMINISTERED BY PT TO HIMSELF. O2 SATS INCREASED TO 88%. WILL KEEP ON CLOSE WATCH.
[2020-04-25] MEDS: ALBUTEROL INHALER 90MCG/INH IH SCH ×6 (01:37→23:59)
[2020-04-25] MEDS: BENZONATATE 100 MG CAPSULE PO SCH ×3 (04:54→21:13)
[2020-04-25] MEDS: GUAIFENESIN-DM 200/20 MG 10 ML PO PRN ×2 (04:54→21:14)
--- NOTE | 2020-04-25 05:30 | NUR ---
COUGH PT IS HAVING A COUGHING EPISODE WITH SOB. PT ON PRONE POSITION. PT CLAIMS OF HAVING A CLOGGED NOSE AND HAS TIGHTNESS ON HIS CHEST WITH BREATHING. RE-POSITIONED COMFORTABLY IN BED WITH HOB ELEVATED. WITH DUE COUGH MEDICATIONS ADMINISTERED, VENTOLIN PUFF WELL. TRIED TO RE-INSERT PIV BUT FAILED. ASKED LEESA CHAUDHRY TO TRY RE-INSERTION.
[2020-04-25 06:34] LABS: BASOPHILS % (AUTO) 0.5 % (0.0-5.0); EOSINOPHILS % (AUTO) 0.3 % (0.0-8.0); HEMATOCRIT 45.2 % (42-54); LYMPHOCYTES % (AUTO) 4.2 % (21.0-51.0); MEAN CORPUSCULAR HEMOGLOBIN 26.8 pg (27.0-33.0); MEAN CORPUSCULAR HGB CONC 32.5 g/dL (32.0-36.0); MEAN CORPUSCULAR VOLUME 82.3 fL (79-99); MONOCYTES % (AUTO) 3.8 % (3.0-13.0); NEUTROPHILS % (AUTO) 85.7 % (40.0-77.0); PLATELET COUNT (AUTO) 379 K/uL (130-400); RED BLOOD CELL COUNT(AUTO) 5.49 MIL/uL (4.50-6.20); RED CELL DISTRIBUTION WIDTH 15.9 % (11.0-15.5); WHITE BLOOD COUNT (AUTO) 26.9 K/uL (4.8-10.8)
[2020-04-25 07:01] LABS: ALBUMIN 2.3 g/dL (3.5-5.0); POTASSIUM 4.1 mmol/L (3.5-5.1); TOTAL PROTEIN, SERUM 6.7 g/dL (6.0-8.3)
[2020-04-25] MEDS ORDERED: BIOTENE 44.3 ML SOLUTION MM PRN (08:30)
[2020-04-25] MEDS ORDERED: PHARMACY COMMUNICATION MISC SCH (08:30)
[2020-04-25] MEDS: AMLODIPINE BESYLATE 5 MG TAB PO SCH (09:07)
[2020-04-25] MEDS: ASCORBIC ACID 500 MG TAB PO SCH (09:07)
[2020-04-25] MEDS: FERROUS SULFATE 325 MG TABLET.DR PO SCH (09:07)
[2020-04-25] MEDS: ZINC SULFATE 220 CAPSULE PO SCH (09:07)
[2020-04-25] MEDS: FAMOTIDINE/PF 20 MG/2 ML VIAL IV SCH ×2 (09:07→21:12)
[2020-04-25] MEDS: METOPROLOL TARTRATE 25 MG TAB PO SCH ×2 (09:07→21:12)
[2020-04-25] MEDS: DEXAMETHASONE SOD PHOSPHATE 4 MG/ML 1ML VIAL IVP SCH (09:08)
[2020-04-25] MEDS: ACETYLCYSTEINE 20% 200MG/ML 4ML VIAL PO SCH ×2 (09:08→21:23)
--- NOTE | 2020-04-25 13:58 | NUR ---
RD FOLLOW UP Pt remains with CLD. High risk with NGT insertion as per RN. Recommend diet advancement to Full Liquid with Ensure nutritional supplement. RN agrees. RD to follow up for diet advancement.
--- NOTE | 2020-04-25 14:30 | NUR ---
RECEIVED TRANSFER TO ROOM 231 VIA BED ACCOMPANIED BY MED/BOTTOM BRUSHER AND STAFF MEMBER. PT. WITH NRB IN PLACE AND DYSPNEA NOTED. DENIES ANY C/O PAIN. PLACED ON CPAP BY R.T. RESTING IN BED IN LEFT SIDE-LYING POSITION. PULSE OXIMETER AT BEDSIDE 86%. WILL ALLOW PT. TIME TO RECOVER FROM TRANSFER. CALL LIGHT WITHIN REACH. ROOM BLINDS OPEN.
--- NOTE | 2020-04-25 14:45 | NUR ---
CONTINUES RESTING IN LEFT SIDE-LYING POSITION WITH CPAP IN PLACE. PULSE OXIMETER 86-88%. INFORMED PT. RE:NEED TO PLACE IN PRONE POSITION. PT. IN AGREEMENT AND COMPLIED. ASSISTED TO REPOSITION BY THIS NURSE. O2 SATURATION INCREASED TO 91% AFTER 2 MIN. AFTER BEING PRONE. CALL LIGHT WITHIN REACH. BLINDS OPEN.
--- NOTE | 2020-04-25 16:26 | NUR ---
RESTING IN BED IN PRONE POSITION. O2 SAT-97%, P-86, PER CONTINUOUS PULSE OXIMETER AT BEDSIDE. CALL LIGHT WITHIN REACH. ROOM BLINDS OPEN.
[2020-04-25] MEDS: SODIUM CHLORIDE 45 ML SPRY NS PRN (17:28)
--- NOTE | 2020-04-25 17:58 | NUR ---
RESTING IN PRONE POSITION. CPAP IN PLACE. O2 SAT-94%, P-89, PER CONTINUOUS PULSE OXIMETER.
[2020-04-25] MEDS: ONDANSETRON HCL 4 MG/2 ML VIAL IV PRN (22:07)
[2020-04-26] MEDS: ALPRAZOLAM 0.25 MG TABLET PO PRN ×2 (03:01→21:46)
[2020-04-26 04:09] VITALS: BP 114/65
[2020-04-26 05:31] LABS: BASOPHILS % (AUTO) 0.5 % (0.0-5.0); EOSINOPHILS % (AUTO) 0.4 % (0.0-8.0); HEMATOCRIT 45.2 % (42-54); LYMPHOCYTES % (AUTO) 4.5 % (21.0-51.0); MEAN CORPUSCULAR HEMOGLOBIN 26.5 pg (27.0-33.0); MEAN CORPUSCULAR HGB CONC 31.9 g/dL (32.0-36.0); MEAN CORPUSCULAR VOLUME 83.2 fL (79-99); MONOCYTES % (AUTO) 4.5 % (3.0-13.0); NEUTROPHILS % (AUTO) 85.8 % (40.0-77.0); PLATELET COUNT (AUTO) 275 K/uL (130-400); RED BLOOD CELL COUNT(AUTO) 5.43 MIL/uL (4.50-6.20); RED CELL DISTRIBUTION WIDTH 17.1 % (11.0-15.5); WHITE BLOOD COUNT (AUTO) 22.9 K/uL (4.8-10.8)
[2020-04-26] MEDS: ALBUTEROL INHALER 90MCG/INH IH SCH ×5 (05:55→21:47)
[2020-04-26 06:14] LABS: ALBUMIN 2.2 g/dL (3.5-5.0); BILIRUBIN,TOTAL 0.8 mg/dL (0.2-1.0); CREATININE 0.9 mg/dL (0.5-1.5); CRP QUANTITATIVE 118.9 mg/L (0.00-9.0); POTASSIUM 4.7 mmol/L (3.5-5.1); TOTAL PROTEIN, SERUM 6.9 g/dL (6.0-8.3)
--- NOTE | 2020-04-26 06:28 | NUR ---
Paged Dr. Amaral regarding critical D-dimer results. Pending call back
[2020-04-26] MEDS: BENZONATATE 100 MG CAPSULE PO SCH ×3 (06:49→21:47)
[2020-04-26 08:00] VITALS: BP 118/57
[2020-04-26] MEDS: ASCORBIC ACID 500 MG TAB PO SCH (09:29)
[2020-04-26] MEDS: ZINC SULFATE 220 CAPSULE PO SCH (09:30)
[2020-04-26] MEDS: AMLODIPINE BESYLATE 5 MG TAB PO SCH (09:30)
[2020-04-26] MEDS: DEXAMETHASONE SOD PHOSPHATE 4 MG/ML 1ML VIAL IVP SCH (09:30)
[2020-04-26] MEDS: ACETYLCYSTEINE 20% 200MG/ML 4ML VIAL PO SCH ×2 (09:30→21:46)
[2020-04-26] MEDS: METOPROLOL TARTRATE 25 MG TAB PO SCH ×2 (09:30→21:47)
[2020-04-26] MEDS: ENOXAPARIN SODIUM 80 MG/0.8 ML SQ SCH (09:33)
[2020-04-26] MEDS: FAMOTIDINE/PF 20 MG/2 ML VIAL IV SCH ×2 (09:34→21:46)
[2020-04-26] MEDS: FERROUS SULFATE 325 MG TABLET.DR PO SCH (09:34)
[2020-04-26 11:30] VITALS: BP 130/73
--- NOTE | 2020-04-26 12:39 | NUR ---
Family Contact Patient's , Jessica Fall, Numerical Code/Password for medical information is [phone].
[2020-04-26] MEDS: LORAZEPAM 2 MG/ML 1 ML VIAL IVP PRN (13:37)
[2020-04-26 15:30] VITALS: BP 115/58
[2020-04-26 20:07] VITALS: BP 129/68
[2020-04-27] VITALS (7 sets, daily range): BP systolic 114–152; BP diastolic 55–77
[2020-04-27] MEDS: ALBUTEROL INHALER 90MCG/INH IH SCH ×6 (02:36→21:06)
--- NOTE | 2020-04-27 05:20 | NUR ---
PT MOVEMENT PT PLACED ON LEFT LATERAL SIDE TO MOVE PATIENT TO NRB FOR TRANSPORT TO NEW ROOM. PT DESAT TO 81% WITH RR 55. RT AND RN NOT COMFORTABLE FOR PATIENT TO TRANSPORT ON NRB. WILL ALLOW TIME TO RECOVER. IOS ARCHITECT NOTIFIED.
[2020-04-27] MEDS: BENZONATATE 100 MG CAPSULE PO SCH ×3 (05:25→20:03)
--- NOTE | 2020-04-27 06:09 | NUR ---
STATUS PT DESAT TO 77%. PRONED PATIENT; APROX 4 MINUTES TO RECOVER TO 86%. RT NOTIFIED.
[2020-04-27 06:17] LABS: CRP QUANTITATIVE 124.5 mg/L (0.00-9.0)
[2020-04-27] MEDS: METOPROLOL TARTRATE 25 MG TAB PO SCH ×2 (08:11→20:02)
[2020-04-27] MEDS: ASCORBIC ACID 500 MG TAB PO SCH (08:12)
[2020-04-27] MEDS: AMLODIPINE BESYLATE 5 MG TAB PO SCH (08:12)
[2020-04-27] MEDS: FERROUS SULFATE 325 MG TABLET.DR PO SCH ×2 (08:12→20:02)
[2020-04-27] MEDS: ZINC SULFATE 220 CAPSULE PO SCH (08:13)
[2020-04-27] MEDS: FAMOTIDINE/PF 20 MG/2 ML VIAL IV SCH ×2 (08:47→20:02)
[2020-04-27] MEDS: ENOXAPARIN SODIUM 80 MG/0.8 ML SQ SCH (08:48)
[2020-04-27] MEDS: DEXAMETHASONE SOD PHOSPHATE 4 MG/ML 1ML VIAL IVP SCH (08:48)
[2020-04-27] MEDS: ACETYLCYSTEINE 20% 200MG/ML 4ML VIAL PO SCH ×2 (08:48→20:02)
[2020-04-27] MEDS: LORAZEPAM 2 MG/ML 1 ML VIAL IVP PRN ×2 (08:49→17:31)
[2020-04-27] MEDS: MEROPENEM 1 GM VIAL IVP SCH (22:30)
[2020-04-28] MEDS: ALBUTEROL INHALER 90MCG/INH IH SCH ×6 (01:14→22:04)
[2020-04-28 03:00] VITALS: BP 122/44
[2020-04-28] MEDS: BENZONATATE 100 MG CAPSULE PO SCH ×3 (05:36→22:00)
[2020-04-28] MEDS: MEROPENEM 1 GM VIAL IVP SCH ×3 (05:36→23:01)
[2020-04-28 05:45] LABS: CRP QUANTITATIVE 139.8 mg/L (0.00-9.0)
--- NOTE | 2020-04-28 05:49 | NUR ---
assessment pt. is alert and oriented times 4. no complaints of any pain. the patient is sating 95% no the bipap the problem is that he keeps removing the bipap. also the sensor keeps coming off of his ear. so the pulse ox reads a lower amount. pt. voided 600 of yellow urine. vital signs stable will continue to monitor.
[2020-04-28 06:34] LABS: BASOPHILS % (AUTO) 0.4 % (0.0-5.0); EOSINOPHILS % (AUTO) 1.9 % (0.0-8.0); HEMATOCRIT 43.3 % (42-54); LYMPHOCYTES % (AUTO) 6.1 % (21.0-51.0); MEAN CORPUSCULAR HEMOGLOBIN 26.7 pg (27.0-33.0); MEAN CORPUSCULAR HGB CONC 32.3 g/dL (32.0-36.0); MEAN CORPUSCULAR VOLUME 82.5 fL (79-99); MONOCYTES % (AUTO) 5.9 % (3.0-13.0); NEUTROPHILS % (AUTO) 82.2 % (40.0-77.0); PLATELET COUNT (AUTO) 340 K/uL (130-400); RED BLOOD CELL COUNT(AUTO) 5.25 MIL/uL (4.50-6.20); WHITE BLOOD COUNT (AUTO) 25.4 K/uL (4.8-10.8)
[2020-04-28 06:42] LABS: BILIRUBIN,TOTAL 1.1 mg/dL (0.2-1.0); POTASSIUM 4.6 mmol/L (3.5-5.1); TOTAL PROTEIN, SERUM 6.6 g/dL (6.0-8.3)
[2020-04-28] MEDS: METOPROLOL TARTRATE 25 MG TAB PO SCH ×2 (07:39→20:22)
[2020-04-28] MEDS: AMLODIPINE BESYLATE 5 MG TAB PO SCH (07:39)
[2020-04-28] MEDS: ASCORBIC ACID 500 MG TAB PO SCH (07:40)
[2020-04-28] MEDS: ZINC SULFATE 220 CAPSULE PO SCH (07:40)
[2020-04-28 08:00] VITALS: BP 151/79
[2020-04-28] MEDS: FAMOTIDINE/PF 20 MG/2 ML VIAL IV SCH ×2 (08:24→23:00)
[2020-04-28] MEDS: DEXAMETHASONE SOD PHOSPHATE 4 MG/ML 1ML VIAL IVP SCH (08:24)
[2020-04-28] MEDS: ENOXAPARIN SODIUM 80 MG/0.8 ML SQ SCH (08:25)
[2020-04-28] MEDS: ACETYLCYSTEINE 20% 200MG/ML 4ML VIAL PO SCH ×2 (08:25→20:22)
[2020-04-28] MEDS: METHYLPREDNISOLONE SOD SUCC 125MG/2ML VIAL IVP SCH ×2 (09:39→23:00)
[2020-04-28 11:30] VITALS: BP 140/81
--- NOTE | 2020-04-28 11:47 | NUR ---
Covering HR ADMINISTRATOR CHRISTIAN made aware of HR 120. New orders given Metropolol 5mg Q 6hrs PRN to be given with a HR greater than 110. also spoke to . CHRISTIAN Lal given wifes number for an update Addendum: 04/28/20 at 1200 by Abilio Serrano RN RN Covering HR ADMINISTRATOR Sergio Johnson made aware of HR 120. New orders given Metropolol 5mg Q 6hrs PRN to be given with a HR greater than 110. also spoke to . Sergio Johnson Paper Machine Operator given wifes number for an update
[2020-04-28] MEDS ORDERED: METOPROLOL TARTRATE 1 MG/ML 5ML VIAL IV PRN (12:00)
--- NOTE | 2020-04-28 12:23 | NUR ---
Spoke to , wants to discontinue Metoprolol 5mg IVP PRN, Orders discontinued, will cont to monitor
[2020-04-28] MEDS: LORAZEPAM 2 MG/ML 1 ML VIAL IVP PRN ×3 (14:59→23:01)
[2020-04-28 16:00] VITALS: BP_SYST 162; BP_SYST 166; BP_DIAS 92
[2020-04-28] MEDS: HYDRALAZINE HCL 20 MG/ML VIAL IV PRN (17:20)
[2020-04-28 20:11] VITALS: BP 122/59
[2020-04-28] MEDS: ENOXAPARIN SODIUM 30 MG/0.3 ML SQ SCH (20:23)
[2020-04-28] MEDS: ENOXAPARIN SODIUM 100 MG/1 ML SQ SCH (20:23)
[2020-04-28] MEDS ORDERED: ENOXAPARIN SODIUM 1 MG/KG SQ SCH (21:00)
[2020-04-28 23:29] VITALS: BP 121/56
[2020-04-29] MEDS: BENZONATATE 100 MG CAPSULE PO SCH ×3 (01:53→22:00)
[2020-04-29] MEDS: ALBUTEROL INHALER 90MCG/INH IH SCH ×4 (01:53→22:00)
[2020-04-29] MEDS: LORAZEPAM 2 MG/ML 1 ML VIAL IVP PRN ×2 (05:14→10:33)
[2020-04-29] MEDS: MEROPENEM 1 GM VIAL IVP SCH ×3 (05:14→18:06)
[2020-04-29 05:20] VITALS: BP 140/68
--- NOTE | 2020-04-29 06:14 | NUR ---
Lab lab unable to obtain AM labs. Will address with day team.
[2020-04-29 07:28] LABS: BASOPHILS % (AUTO) 0.3 % (0.0-5.0); EOSINOPHILS % (AUTO) 0.3 % (0.0-8.0); HEMATOCRIT 44.5 % (42-54); LYMPHOCYTES % (AUTO) 4.9 % (21.0-51.0); MEAN CORPUSCULAR HEMOGLOBIN 26.6 pg (27.0-33.0); MEAN CORPUSCULAR HGB CONC 32.6 g/dL (32.0-36.0); MEAN CORPUSCULAR VOLUME 81.5 fL (79-99); MONOCYTES % (AUTO) 5.2 % (3.0-13.0); NEUTROPHILS % (AUTO) 86.5 % (40.0-77.0); PLATELET COUNT (AUTO) 366 K/uL (130-400); RED BLOOD CELL COUNT(AUTO) 5.46 MIL/uL (4.50-6.20); RED CELL DISTRIBUTION WIDTH 17.2 % (11.0-15.5); WHITE BLOOD COUNT (AUTO) 21.9 K/uL (4.8-10.8)
[2020-04-29 07:48] LABS: ALBUMIN 2.1 g/dL (3.5-5.0); BILIRUBIN,TOTAL 0.9 mg/dL (0.2-1.0); CREATININE 0.9 mg/dL (0.5-1.5); CRP QUANTITATIVE 121.8 mg/L (0.00-9.0); POTASSIUM 4.5 mmol/L (3.5-5.1)
[2020-04-29 08:00] VITALS: BP 104/80
[2020-04-29 08:09] LABS: INR 1.06 (0.85-1.15); PROTHROMBIN TIME 11.4 SEC (9.6-11.6)
[2020-04-29] MEDS: FERROUS SULFATE 325 MG TABLET.DR PO SCH (09:00)
[2020-04-29] MEDS: ASCORBIC ACID 500 MG TAB PO SCH (09:00)
[2020-04-29] MEDS: ENOXAPARIN SODIUM 30 MG/0.3 ML SQ SCH ×2 (09:39→20:47)
[2020-04-29] MEDS: ENOXAPARIN SODIUM 100 MG/1 ML SQ SCH ×2 (09:40→20:47)
[2020-04-29] MEDS: METHYLPREDNISOLONE SOD SUCC 125MG/2ML VIAL IVP SCH ×2 (09:40→19:28)
[2020-04-29] MEDS: FAMOTIDINE/PF 20 MG/2 ML VIAL IV SCH ×2 (09:40→19:28)
[2020-04-29] MEDS: METOPROLOL TARTRATE 25 MG TAB PO SCH ×2 (09:41→20:43)
[2020-04-29] MEDS: ZINC SULFATE 220 CAPSULE PO SCH (09:41)
[2020-04-29] MEDS: AMLODIPINE BESYLATE 5 MG TAB PO SCH (09:41)
[2020-04-29] MEDS: ACETYLCYSTEINE 20% 200MG/ML 4ML VIAL PO SCH ×2 (09:41→20:43)
[2020-04-29 11:30] VITALS: BP 145/86
[2020-04-29 15:30] VITALS: BP 148/84
--- NOTE | 2020-04-29 16:52 | NUR ---
2 UNSUCCESSFULL ATTEMPTS AT PICC PLACEMENT. ALL ATTEMPTS USING ASEPTIC TECHNIQUE. ACCESSED RIGHT BASILIC VEIN BUT UNABLE TO ADVANCE PICC PAST THE SUBCLAVIAN AREA. CHEST XRAY SHOWED CATHETER CURLED BACK ON ITSELF. ALSO ATTEMPTED RIGHT CEPHALIC VEIN BUT STILL UNABLE TO ADVANCE CATHETER PAST SAME LOCATION. 2 ATTEMPTS AT PERIPHERAL IV ALSO UNSUCCESSFUL. ALSO THIS PT IS VERY DEHYDRATED. LEESA NICOLE AND CHIEF OF PARTY NOTIFIED. WILL REQUEST ANOTHER PICC NURSE TO COME TRY TOMORROW 04-30-20.
[2020-04-29] MEDS: ALPRAZOLAM 0.25 MG TABLET PO PRN (17:47)
[2020-04-29 20:08] VITALS: BP 127/74
[2020-04-29] MEDS: CLONAZEPAM 0.5 MG TABLET PO SCH (20:43)
[2020-04-29 23:46] VITALS: BP 91/45
[2020-04-30] MEDS: ALBUTEROL INHALER 90MCG/INH IH SCH ×5 (02:00→22:00)
[2020-04-30 04:07] VITALS: BP 118/84
[2020-04-30 05:32] LABS: BASOPHILS % (AUTO) 0.2 % (0.0-5.0); HEMATOCRIT 44.5 % (42-54); LYMPHOCYTES % (AUTO) 7.1 % (21.0-51.0); MEAN CORPUSCULAR HGB CONC 32.6 g/dL (32.0-36.0); MEAN CORPUSCULAR VOLUME 82.7 fL (79-99); MONOCYTES % (AUTO) 6.8 % (3.0-13.0); NEUTROPHILS % (AUTO) 84.1 % (40.0-77.0); PLATELET COUNT (AUTO) 373 K/uL (130-400); RED BLOOD CELL COUNT(AUTO) 5.38 MIL/uL (4.50-6.20); RED CELL DISTRIBUTION WIDTH 17.3 % (11.0-15.5); WHITE BLOOD COUNT (AUTO) 21.3 K/uL (4.8-10.8)
[2020-04-30] MEDS: MEROPENEM 1 GM VIAL IVP SCH ×3 (05:40→19:52)
[2020-04-30] MEDS: BENZONATATE 100 MG CAPSULE PO SCH ×3 (05:40→19:52)
[2020-04-30 06:04] LABS: ALBUMIN 2.1 g/dL (3.5-5.0); BILIRUBIN,TOTAL 0.9 mg/dL (0.2-1.0); CREATININE 0.9 mg/dL (0.5-1.5); CRP QUANTITATIVE 58.3 mg/L (0.00-9.0); POTASSIUM 4.8 mmol/L (3.5-5.1); TOTAL PROTEIN, SERUM 6.9 g/dL (6.0-8.3)
[2020-04-30] MEDS: CLONAZEPAM 0.5 MG TABLET PO SCH ×2 (08:35→19:52)
[2020-04-30] MEDS: ACETYLCYSTEINE 20% 200MG/ML 4ML VIAL PO SCH ×2 (09:00→19:52)
[2020-04-30 09:12] VITALS: BP 126/65
[2020-04-30] MEDS: ASCORBIC ACID 500 MG TAB PO SCH (11:10)
[2020-04-30] MEDS: METHYLPREDNISOLONE SOD SUCC 125MG/2ML VIAL IVP SCH ×2 (11:10→19:51)
[2020-04-30] MEDS: METOPROLOL TARTRATE 25 MG TAB PO SCH ×2 (11:10→19:52)
[2020-04-30] MEDS: ZINC SULFATE 220 CAPSULE PO SCH (11:10)
[2020-04-30] MEDS: AMLODIPINE BESYLATE 5 MG TAB PO SCH (11:10)
[2020-04-30] MEDS: FERROUS SULFATE 325 MG TABLET.DR PO SCH (11:10)
[2020-04-30] MEDS: FAMOTIDINE/PF 20 MG/2 ML VIAL IV SCH ×2 (11:11→19:51)
[2020-04-30] MEDS: ENOXAPARIN SODIUM 100 MG/1 ML SQ SCH ×2 (11:11→19:52)
[2020-04-30] MEDS: ENOXAPARIN SODIUM 30 MG/0.3 ML SQ SCH ×2 (11:12→19:52)
[2020-04-30] MEDS: ONDANSETRON HCL 4 MG/2 ML VIAL IV PRN (12:40)
[2020-04-30 12:47] VITALS: BP 141/69
[2020-04-30] MEDS: ALPRAZOLAM 0.25 MG TABLET PO PRN (15:13)
[2020-04-30 15:50] VITALS: BP 129/59
--- NOTE | 2020-04-30 18:35 | NUR ---
Spouse update Spouse called back .All her questions answered
[2020-04-30 20:22] VITALS: BP 120/64
[2020-05-01 00:14] VITALS: BP 133/80
[2020-05-01] MEDS: ALBUTEROL INHALER 90MCG/INH IH SCH ×6 (02:00→22:00)
[2020-05-01 04:03] VITALS: BP 126/61
[2020-05-01] MEDS: BENZONATATE 100 MG CAPSULE PO SCH ×3 (05:11→20:24)
[2020-05-01] MEDS: MEROPENEM 1 GM VIAL IVP SCH ×3 (06:10→20:24)
[2020-05-01 07:07] LABS: BASOPHILS % (AUTO) 0.2 % (0.0-5.0); EOSINOPHILS % (AUTO) 0.1 % (0.0-8.0); HEMATOCRIT 44.6 % (42-54); MEAN CORPUSCULAR HEMOGLOBIN 26.9 pg (27.0-33.0); MEAN CORPUSCULAR HGB CONC 32.1 g/dL (32.0-36.0); MEAN CORPUSCULAR VOLUME 83.8 fL (79-99); MONOCYTES % (AUTO) 5.5 % (3.0-13.0); NEUTROPHILS % (AUTO) 85.2 % (40.0-77.0); PLATELET COUNT (AUTO) 331 K/uL (130-400); RED BLOOD CELL COUNT(AUTO) 5.32 MIL/uL (4.50-6.20); WHITE BLOOD COUNT (AUTO) 15.6 K/uL (4.8-10.8)
[2020-05-01 07:23] LABS: ALBUMIN 2.1 g/dL (3.5-5.0); BILIRUBIN,TOTAL 0.8 mg/dL (0.2-1.0); CREATININE 1.2 mg/dL (0.5-1.5); CRP QUANTITATIVE 36.9 mg/L (0.00-9.0); POTASSIUM 5.3 mmol/L (3.5-5.1); TOTAL PROTEIN, SERUM 6.5 g/dL (6.0-8.3)
[2020-05-01 08:55] VITALS: BP 120/75
[2020-05-01] MEDS: CLONAZEPAM 0.5 MG TABLET PO SCH ×2 (09:09→20:23)
[2020-05-01] MEDS: METHYLPREDNISOLONE SOD SUCC 125MG/2ML VIAL IVP SCH ×2 (09:10→20:23)
[2020-05-01] MEDS: FERROUS SULFATE 325 MG TABLET.DR PO SCH (09:11)
[2020-05-01] MEDS: FAMOTIDINE/PF 20 MG/2 ML VIAL IV SCH ×2 (09:11→20:23)
[2020-05-01] MEDS: ASCORBIC ACID 500 MG TAB PO SCH (09:12)
[2020-05-01] MEDS: AMLODIPINE BESYLATE 5 MG TAB PO SCH (09:12)
[2020-05-01] MEDS: ZINC SULFATE 220 CAPSULE PO SCH (09:12)
[2020-05-01] MEDS: ENOXAPARIN SODIUM 30 MG/0.3 ML SQ SCH ×2 (09:14→20:24)
[2020-05-01] MEDS: ENOXAPARIN SODIUM 100 MG/1 ML SQ SCH ×2 (09:14→20:23)
[2020-05-01] MEDS: ACETYLCYSTEINE 20% 200MG/ML 4ML VIAL PO SCH ×2 (09:15→20:23)
[2020-05-01] MEDS: METOPROLOL TARTRATE 25 MG TAB PO SCH ×2 (09:15→20:23)
--- NOTE | 2020-05-01 09:23 | NUR ---
MUCOCYMST MUCOMYST MEDICATION WAS NOT SCANNING. VERIFIED MEDICATION WITH NURSE FRANCY. PHARMACY NOTIFIED
[2020-05-01 12:43] VITALS: BP 128/76
[2020-05-01 15:51] VITALS: BP 124/76
[2020-05-01 20:00] VITALS: BP 117/67
[2020-05-02] VITALS: BP 143/72
[2020-05-02] MEDS: ALBUTEROL INHALER 90MCG/INH IH SCH ×6 (02:00→20:49)
[2020-05-02 04:00] VITALS: BP_SYST 124; BP_SYST 137; BP_DIAS 66; BP_DIAS 90
[2020-05-02] MEDS: BENZONATATE 100 MG CAPSULE PO SCH ×3 (05:26→22:46)
[2020-05-02] MEDS: MEROPENEM 1 GM VIAL IVP SCH ×3 (05:26→22:46)
[2020-05-02] MEDS: CLONAZEPAM 0.5 MG TABLET PO SCH ×2 (09:06→22:45)
[2020-05-02] MEDS: FERROUS SULFATE 325 MG TABLET.DR PO SCH (09:06)
[2020-05-02] MEDS: ZINC SULFATE 220 CAPSULE PO SCH (09:06)
[2020-05-02] MEDS: ASCORBIC ACID 500 MG TAB PO SCH (09:06)
[2020-05-02] MEDS: METOPROLOL TARTRATE 25 MG TAB PO SCH ×2 (09:07→22:45)
[2020-05-02] MEDS: AMLODIPINE BESYLATE 5 MG TAB PO SCH (09:07)
[2020-05-02] MEDS: ACETYLCYSTEINE 20% 200MG/ML 4ML VIAL PO SCH ×2 (09:07→22:45)
[2020-05-02] MEDS: FAMOTIDINE/PF 20 MG/2 ML VIAL IV SCH ×2 (09:08→22:45)
[2020-05-02] MEDS: METHYLPREDNISOLONE SOD SUCC 125MG/2ML VIAL IVP SCH ×2 (09:08→22:45)
[2020-05-02] MEDS: ENOXAPARIN SODIUM 30 MG/0.3 ML SQ SCH ×2 (09:09→22:45)
[2020-05-02] MEDS: ENOXAPARIN SODIUM 100 MG/1 ML SQ SCH ×2 (09:09→22:45)
[2020-05-02 09:46] VITALS: BP 115/65
[2020-05-02 12:22] LABS: BASOPHILS % (AUTO) 0.2 % (0.0-5.0); EOSINOPHILS % (AUTO) 0.6 % (0.0-8.0); HEMATOCRIT 43.5 % (42-54); LYMPHOCYTES % (AUTO) 6.1 % (21.0-51.0); MEAN CORPUSCULAR HEMOGLOBIN 26.8 pg (27.0-33.0); MEAN CORPUSCULAR HGB CONC 31.5 g/dL (32.0-36.0); MEAN CORPUSCULAR VOLUME 85.1 fL (79-99); MONOCYTES % (AUTO) 4.1 % (3.0-13.0); NEUTROPHILS % (AUTO) 86.6 % (40.0-77.0); PLATELET COUNT (AUTO) 309 K/uL (130-400); RED BLOOD CELL COUNT(AUTO) 5.11 MIL/uL (4.50-6.20); WHITE BLOOD COUNT (AUTO) 14.2 K/uL (4.8-10.8)
[2020-05-02 12:41] LABS: ALBUMIN 2.2 g/dL (3.5-5.0); BILIRUBIN,TOTAL 0.7 mg/dL (0.2-1.0); CREATININE 0.8 mg/dL (0.5-1.5); POTASSIUM 5.1 mmol/L (3.5-5.1); TOTAL PROTEIN, SERUM 5.8 g/dL (6.0-8.3)
[2020-05-02 12:43] VITALS: BP 144/62
[2020-05-02 19:03] VITALS: BP 110/51
[2020-05-02 20:05] VITALS: BP 118/66
[2020-05-03] VITALS (8 sets, daily range): BP systolic 109–122; BP diastolic 65–85
[2020-05-03 04:42] LABS: BASOPHILS % (AUTO) 0.3 % (0.0-5.0); HEMATOCRIT 42.5 % (42-54); LYMPHOCYTES % (AUTO) 4.5 % (21.0-51.0); MEAN CORPUSCULAR HEMOGLOBIN 27.3 pg (27.0-33.0); MEAN CORPUSCULAR HGB CONC 32.7 g/dL (32.0-36.0); MEAN CORPUSCULAR VOLUME 83.3 fL (79-99); MONOCYTES % (AUTO) 2.8 % (3.0-13.0); PLATELET COUNT (AUTO) 299 K/uL (130-400); RED CELL DISTRIBUTION WIDTH 16.5 % (11.0-15.5); WHITE BLOOD COUNT (AUTO) 15.3 K/uL (4.8-10.8)
[2020-05-03] MEDS: ALBUTEROL INHALER 90MCG/INH IH SCH ×4 (04:50→17:23)
[2020-05-03 04:58] LABS: BILIRUBIN,TOTAL 0.9 mg/dL (0.2-1.0); CREATININE 0.8 mg/dL (0.5-1.5); CRP QUANTITATIVE 11.5 mg/L (0.00-9.0); PHOSPHORUS 4.2 mg/dL (2.5-4.9); POTASSIUM 4.7 mmol/L (3.5-5.1); TOTAL PROTEIN, SERUM 6.1 g/dL (6.0-8.3)
[2020-05-03] MEDS: BENZONATATE 100 MG CAPSULE PO SCH ×3 (05:30→21:51)
[2020-05-03] MEDS: MEROPENEM 1 GM VIAL IVP SCH (05:30)
--- NOTE | 2020-05-03 06:29 | NUR ---
END OF SHIFT NOTE PATIENT IS RESTING QUIETLY IN BED ON CPAP AT 10 AND 65% FIO2. CONTINUOUS PULSE OX READING AT 96%. NO RESPIRATORY DISTRESS OR SHORTNESS OF BREATH OBSERVED.
[2020-05-03] MEDS: CLONAZEPAM 0.5 MG TABLET PO SCH ×2 (09:20→21:53)
[2020-05-03] MEDS: ACETYLCYSTEINE 20% 200MG/ML 4ML VIAL PO SCH ×2 (09:21→21:55)
[2020-05-03] MEDS: FAMOTIDINE/PF 20 MG/2 ML VIAL IV SCH ×2 (09:21→21:54)
[2020-05-03] MEDS: METOPROLOL TARTRATE 25 MG TAB PO SCH ×2 (09:22→21:58)
[2020-05-03] MEDS: FERROUS SULFATE 325 MG TABLET.DR PO SCH (09:22)
[2020-05-03] MEDS: ASCORBIC ACID 500 MG TAB PO SCH (09:23)
[2020-05-03] MEDS: METHYLPREDNISOLONE SOD SUCC 125MG/2ML VIAL IVP SCH ×2 (09:23→21:55)
[2020-05-03] MEDS: ZINC SULFATE 220 CAPSULE PO SCH (09:24)
[2020-05-03] MEDS: ENOXAPARIN SODIUM 30 MG/0.3 ML SQ SCH (09:24)
[2020-05-03] MEDS: ENOXAPARIN SODIUM 100 MG/1 ML SQ SCH (09:24)
[2020-05-03] MEDS: AMLODIPINE BESYLATE 5 MG TAB PO SCH (09:25)
[2020-05-03] MEDS: ENOXAPARIN SODIUM 60 MG/0.6 ML SQ SCH (21:51)
[2020-05-04 03:00] VITALS: BP 128/74
[2020-05-04 05:34] LABS: BASOPHILS % (AUTO) 0.2 % (0.0-5.0); LYMPHOCYTES % (AUTO) 4.4 % (21.0-51.0); MEAN CORPUSCULAR HEMOGLOBIN 26.9 pg (27.0-33.0); MEAN CORPUSCULAR HGB CONC 32.3 g/dL (32.0-36.0); MEAN CORPUSCULAR VOLUME 83.5 fL (79-99); MONOCYTES % (AUTO) 3.7 % (3.0-13.0); NEUTROPHILS % (AUTO) 89.7 % (40.0-77.0); PLATELET COUNT (AUTO) 272 K/uL (130-400); RED BLOOD CELL COUNT(AUTO) 5.27 MIL/uL (4.50-6.20); RED CELL DISTRIBUTION WIDTH 16.8 % (11.0-15.5); WHITE BLOOD COUNT (AUTO) 16.2 K/uL (4.8-10.8)
[2020-05-04 05:54] LABS: ALBUMIN 2.1 g/dL (3.5-5.0); BILIRUBIN,TOTAL 0.9 mg/dL (0.2-1.0); CREATININE 0.8 mg/dL (0.5-1.5); MAGNESIUM 2.5 mg/dL (1.80-2.40); PHOSPHORUS 3.8 mg/dL (2.5-4.9); POTASSIUM 4.6 mmol/L (3.5-5.1); TOTAL PROTEIN, SERUM 6.3 g/dL (6.0-8.3)
[2020-05-04] MEDS: BENZONATATE 100 MG CAPSULE PO SCH ×3 (06:25→20:31)
[2020-05-04 08:00] VITALS: BP 135/65
[2020-05-04] MEDS: METHYLPREDNISOLONE SOD SUCC 125MG/2ML VIAL IVP SCH ×2 (09:34→20:32)
[2020-05-04] MEDS: FERROUS SULFATE 325 MG TABLET.DR PO SCH (09:34)
[2020-05-04] MEDS: ACETYLCYSTEINE 600 MG CAPSULE PO SCH ×2 (09:34→20:32)
[2020-05-04] MEDS: AMLODIPINE BESYLATE 5 MG TAB PO SCH (09:34)
[2020-05-04] MEDS: METOPROLOL TARTRATE 25 MG TAB PO SCH ×2 (09:34→20:31)
[2020-05-04] MEDS: CLONAZEPAM 0.5 MG TABLET PO SCH ×2 (09:34→20:31)
[2020-05-04] MEDS: ALBUTEROL INHALER 90MCG/INH IH SCH ×4 (09:34→22:00)
[2020-05-04] MEDS: ENOXAPARIN SODIUM 60 MG/0.6 ML SQ SCH ×2 (09:34→20:31)
[2020-05-04] MEDS: FAMOTIDINE/PF 20 MG/2 ML VIAL IV SCH ×2 (09:34→21:00)
[2020-05-04] MEDS: ASCORBIC ACID 500 MG TAB PO SCH (09:34)
[2020-05-04] MEDS: ZINC SULFATE 220 CAPSULE PO SCH (09:34)
[2020-05-04 12:07] VITALS: BP 133/80
[2020-05-04 16:00] VITALS: BP 150/79
[2020-05-04 20:45] VITALS: BP 164/77
[2020-05-05] VITALS (7 sets, daily range): BP systolic 116–137; BP diastolic 67–88
[2020-05-05 04:44] LABS: BASOPHILS % (AUTO) 0.2 % (0.0-5.0); EOSINOPHILS % (AUTO) 0.2 % (0.0-8.0); HEMATOCRIT 45.4 % (42-54); MEAN CORPUSCULAR HEMOGLOBIN 26.8 pg (27.0-33.0); MEAN CORPUSCULAR HGB CONC 31.7 g/dL (32.0-36.0); MEAN CORPUSCULAR VOLUME 84.5 fL (79-99); MONOCYTES % (AUTO) 3.7 % (3.0-13.0); PLATELET COUNT (AUTO) 263 K/uL (130-400); RED BLOOD CELL COUNT(AUTO) 5.37 MIL/uL (4.50-6.20); RED CELL DISTRIBUTION WIDTH 16.9 % (11.0-15.5); WHITE BLOOD COUNT (AUTO) 16.9 K/uL (4.8-10.8)
[2020-05-05 05:09] LABS: ALBUMIN 2.1 g/dL (3.5-5.0); CREATININE 0.7 mg/dL (0.5-1.5); CRP QUANTITATIVE 2.5 mg/L (0.00-9.0); MAGNESIUM 2.6 mg/dL (1.80-2.40); PHOSPHORUS 4.1 mg/dL (2.5-4.9); POTASSIUM 5.2 mmol/L (3.5-5.1); TOTAL PROTEIN, SERUM 6.2 g/dL (6.0-8.3)
[2020-05-05] MEDS: ALBUTEROL INHALER 90MCG/INH IH SCH (05:20)
--- NOTE | 2020-05-05 05:30 | NUR ---
Blood drawn from left triple lumen PICC line pink port and send to lab. All port flush per protocol. Patient has albuterol inhaler at bed side due to COVID 19 isolation, administered q4 hrs as ordered. Patient continued on high flow oxygen during the night, POX between 95-98%, with no acute respiratory distress observed. Following POC.
[2020-05-05] MEDS: BENZONATATE 100 MG CAPSULE PO SCH ×3 (06:12→21:24)
[2020-05-05] MEDS: ACETAMINOPHEN 325 MG TAB PO PRN (09:03)
[2020-05-05] MEDS: ALPRAZOLAM 0.25 MG TABLET PO PRN (09:06)
[2020-05-05] MEDS: METHYLPREDNISOLONE SOD SUCC 125MG/2ML VIAL IVP SCH ×2 (09:31→21:25)
[2020-05-05] MEDS: FAMOTIDINE/PF 20 MG/2 ML VIAL IV SCH ×2 (09:31→21:24)
[2020-05-05] MEDS: METOPROLOL TARTRATE 25 MG TAB PO SCH ×2 (09:32→21:24)
[2020-05-05] MEDS: CLONAZEPAM 0.5 MG TABLET PO SCH ×2 (09:32→21:26)
[2020-05-05] MEDS: FERROUS SULFATE 325 MG TABLET.DR PO SCH (09:32)
[2020-05-05] MEDS: ZINC SULFATE 220 CAPSULE PO SCH (09:33)
[2020-05-05] MEDS: AMLODIPINE BESYLATE 5 MG TAB PO SCH (09:33)
[2020-05-05] MEDS: ASCORBIC ACID 500 MG TAB PO SCH (09:33)
[2020-05-05] MEDS: ACETYLCYSTEINE 600 MG CAPSULE PO SCH ×2 (09:33→21:24)
[2020-05-05] MEDS: ENOXAPARIN SODIUM 60 MG/0.6 ML SQ SCH ×2 (09:35→21:23)
--- NOTE | 2020-05-05 09:35 | NUR ---
PRONE POSITION ASSISTED BY RT, SATS MONITOR ON PT. TOLERATING WELL. 99-100% SATS.
--- NOTE | 2020-05-05 13:05 | NUR ---
DR SINHA AT BEDSIDE ROUNDING ORDERS TO DECREASE FIO2 TO 80% HI FLOW AND TRY TO WEAN TO NRB TOLERATED. RESPIRATORY NOTIFIED OF NEW ORDERS.
--- NOTE | 2020-05-05 16:59 | NUR ---
PATIENT TURNED SELF BACK TO SUPINE POSITION SATS 90-96% NO COMPLAINTS
[2020-05-06 04:32] VITALS: BP 143/88
[2020-05-06 05:35] LABS: BASOPHILS % (AUTO) 0.2 % (0.0-5.0); EOSINOPHILS % (AUTO) 0.1 % (0.0-8.0); HEMATOCRIT 45.6 % (42-54); LYMPHOCYTES % (AUTO) 4.7 % (21.0-51.0); MEAN CORPUSCULAR HEMOGLOBIN 26.6 pg (27.0-33.0); MEAN CORPUSCULAR HGB CONC 31.4 g/dL (32.0-36.0); MEAN CORPUSCULAR VOLUME 84.8 fL (79-99); MONOCYTES % (AUTO) 2.7 % (3.0-13.0); NEUTROPHILS % (AUTO) 89.8 % (40.0-77.0); PLATELET COUNT (AUTO) 269 K/uL (130-400); RED BLOOD CELL COUNT(AUTO) 5.38 MIL/uL (4.50-6.20); RED CELL DISTRIBUTION WIDTH 16.6 % (11.0-15.5); WHITE BLOOD COUNT (AUTO) 14.8 K/uL (4.8-10.8)
[2020-05-06 06:14] LABS: ALBUMIN 2.2 g/dL (3.5-5.0); BILIRUBIN,TOTAL 0.9 mg/dL (0.2-1.0); CREATININE 0.8 mg/dL (0.5-1.5); CRP QUANTITATIVE 2.5 mg/L (0.00-9.0); POTASSIUM 5.1 mmol/L (3.5-5.1); TOTAL PROTEIN, SERUM 6.2 g/dL (6.0-8.3)
[2020-05-06] MEDS: ACETAMINOPHEN 325 MG TAB PO PRN ×2 (06:28→20:00)
[2020-05-06 07:46] VITALS: BP 127/76
[2020-05-06 10:35] VITALS: BP 119/70
[2020-05-06] MEDS: ALBUTEROL INHALER 90MCG/INH IH SCH ×4 (10:44→22:17)
[2020-05-06] MEDS: AMLODIPINE BESYLATE 5 MG TAB PO SCH (10:45)
[2020-05-06] MEDS: CLONAZEPAM 0.5 MG TABLET PO SCH ×2 (10:45→20:13)
[2020-05-06] MEDS: ZINC SULFATE 220 CAPSULE PO SCH (10:45)
[2020-05-06] MEDS: FERROUS SULFATE 325 MG TABLET.DR PO SCH (10:45)
[2020-05-06] MEDS: ASCORBIC ACID 500 MG TAB PO SCH (10:45)
[2020-05-06] MEDS: METOPROLOL TARTRATE 25 MG TAB PO SCH ×2 (10:45→19:59)
[2020-05-06] MEDS: METHYLPREDNISOLONE SOD SUCC 125MG/2ML VIAL IVP SCH ×2 (10:45→19:58)
[2020-05-06] MEDS: FAMOTIDINE/PF 20 MG/2 ML VIAL IV SCH ×2 (10:45→19:59)
[2020-05-06] MEDS: ACETYLCYSTEINE 600 MG CAPSULE PO SCH ×2 (10:45→19:59)
[2020-05-06] MEDS: ENOXAPARIN SODIUM 60 MG/0.6 ML SQ SCH ×2 (10:45→19:59)
[2020-05-06] MEDS: BENZONATATE 100 MG CAPSULE PO SCH ×2 (14:41→19:58)
[2020-05-06 15:34] VITALS: BP 126/74
[2020-05-06 19:56] VITALS: BP 110/64
--- NOTE | 2020-05-06 21:37 | NUR ---
LICENSED CUSTOMS BROKER Paged Farzana Palacios Np and notified re pt.s c/o bloody sputum.
[2020-05-06 23:45] VITALS: BP 128/74
--- NOTE | 2020-05-07 00:18 | NUR ---
CALM/RELAXED Pt states he feels better,laying on his side.Tolerating high flow 02 and non rebreather mask.
[2020-05-07] MEDS: ALBUTEROL INHALER 90MCG/INH IH SCH ×8 (02:08→20:57)
--- NOTE | 2020-05-07 02:43 | NUR ---
PRONE Pt laying prone by himself,RT weaned 02 to 80% partial non rebreather mask,and 50% on the high flow 02.Abimbola well.saturating 97%.
[2020-05-07 03:59] VITALS: BP 124/62
--- NOTE | 2020-05-07 04:34 | NUR ---
LAB Blood sample obtained from Picc line,flushed as per protocol.No difficulty noted.Picc line dressing dry and intact.
[2020-05-07 05:00] LABS: INR 0.93 (0.85-1.15); PARTIAL THROMBOPLASTIN TIME 26.9 SEC (26.3-35.5); PROTHROMBIN TIME 10.1 SEC (9.6-11.6)
[2020-05-07 05:04] LABS: BASOPHILS % (AUTO) 0.2 % (0.0-5.0); EOSINOPHILS % (AUTO) 0.1 % (0.0-8.0); HEMATOCRIT 44.6 % (42-54); LYMPHOCYTES % (AUTO) 5.2 % (21.0-51.0); MEAN CORPUSCULAR HEMOGLOBIN 27.3 pg (27.0-33.0); MEAN CORPUSCULAR HGB CONC 32.1 g/dL (32.0-36.0); MEAN CORPUSCULAR VOLUME 85.1 fL (79-99); MONOCYTES % (AUTO) 4.2 % (3.0-13.0); NEUTROPHILS % (AUTO) 88.3 % (40.0-77.0); PLATELET COUNT (AUTO) 268 K/uL (130-400); RED BLOOD CELL COUNT(AUTO) 5.24 MIL/uL (4.50-6.20); RED CELL DISTRIBUTION WIDTH 16.6 % (11.0-15.5); WHITE BLOOD COUNT (AUTO) 14.6 K/uL (4.8-10.8)
[2020-05-07] MEDS: BENZONATATE 100 MG CAPSULE PO SCH ×3 (05:14→21:27)
[2020-05-07 05:19] LABS: ALANINE AMINOTRANSFERASE 77 U/L (12-78); ALBUMIN 2.2 g/dL (3.5-5.0); ASPARTATE AMINOTRANSFERASE 33 U/L (10-37); BILIRUBIN,TOTAL 0.9 mg/dL (0.2-1.0); CARBON DIOXIDE 34 mmol/L (21-32); CHLORIDE 102 mmol/L (101-111); CREATININE 0.8 mg/dL (0.5-1.5); GLOMERULAR FILTR. RATE CALC 108 mL/min (>60); GLUCOSE,RANDOM 128 mg/dL (70-105); LACTATE DEHYDROGENASE 426 U/L (81-234); POTASSIUM 4.8 mmol/L (3.5-5.1); SODIUM SERUM 139 mmol/L (136-145); TOTAL PROTEIN, SERUM 5.9 g/dL (6.0-8.3); UREA NITROGEN, BLOOD 21 mg/dL (7-18)
[2020-05-07 05:21] LABS: CRP QUANTITATIVE < 2.00 mg/L (0.00-9.0)
--- NOTE | 2020-05-07 06:35 | NUR ---
STATUS Pt did not report any bloody sputum.No cough noted.Sputum for AFB pending,Pt provided with specimen cup.
[2020-05-07 08:00] VITALS: BP 129/70
[2020-05-07] MEDS: CLONAZEPAM 0.5 MG TABLET PO SCH ×2 (09:00→21:26)
[2020-05-07] MEDS: ENOXAPARIN SODIUM 60 MG/0.6 ML SQ SCH ×2 (09:00→21:27)
[2020-05-07] MEDS: ZINC SULFATE 220 CAPSULE PO SCH (09:00)
[2020-05-07] MEDS: METHYLPREDNISOLONE SOD SUCC 125MG/2ML VIAL IVP SCH (09:00)
[2020-05-07] MEDS: FERROUS SULFATE 325 MG TABLET.DR PO SCH (09:00)
[2020-05-07] MEDS: AMLODIPINE BESYLATE 5 MG TAB PO SCH (09:00)
[2020-05-07] MEDS: ASCORBIC ACID 500 MG TAB PO SCH (09:00)
[2020-05-07] MEDS: FAMOTIDINE/PF 20 MG/2 ML VIAL IV SCH ×2 (09:00→21:26)
[2020-05-07] MEDS: METOPROLOL TARTRATE 25 MG TAB PO SCH ×2 (09:00→21:26)
[2020-05-07] MEDS: ACETYLCYSTEINE 600 MG CAPSULE PO SCH ×2 (09:00→21:26)
[2020-05-07 12:00] VITALS: BP 128/67
--- NOTE | 2020-05-07 12:32 | NUR ---
RD FOLLOW UP Pt tolerating Full Liquid diet order with no report of GI distress. Poor PO of full liquid diet order, however Pt requesting regular foods/diet order, as per RN. Pt consuming Ensure TID at 100%, per RN. Pt with Zinc, Vitamin C in place. Recommend advance diet as tolerated to Heart healthy diet order Recommend continue Ensure TID when diet order advanced RD to continue to monitor. Please notify as additional nutrition concerns arise. Thank you. Addendum: 05/07/20 at [address] Amended: Links added.
[2020-05-07 16:00] VITALS: BP 115/74
--- NOTE | 2020-05-07 17:52 | NUR ---
SHIFT NOTE Patient in good spirits this shift. Tolerating oxygen weaning by Respiratory without difficulty. PICC line dressing to PAMELLA changed, line has positive blood return, line remains patent and flushes well, no s/s of infection noted. Spoke with and updated her on his care and condition. Patient with no c/o pain or discomfort at this time. Call device within reach will cont. to monitor.
[2020-05-07 19:34] VITALS: BP 151/88
[2020-05-07] MEDS: METHYLPREDNISOLONE SOD SUCC 40MG/ML 1ML IVP SCH (21:26)
[2020-05-07 23:11] VITALS: BP 111/65
[2020-05-08 03:20] VITALS: BP 134/66
[2020-05-08 05:13] LABS: CRP QUANTITATIVE 4.6 mg/L (0.00-9.0)
[2020-05-08] MEDS: BENZONATATE 100 MG CAPSULE PO SCH ×3 (06:21→21:20)
[2020-05-08 08:00] VITALS: BP 133/67
[2020-05-08] MEDS: METOPROLOL TARTRATE 25 MG TAB PO SCH ×2 (08:51→21:19)
[2020-05-08] MEDS: ASCORBIC ACID 500 MG TAB PO SCH (08:51)
[2020-05-08] MEDS: FAMOTIDINE/PF 20 MG/2 ML VIAL IV SCH ×2 (08:51→21:19)
[2020-05-08] MEDS: FERROUS SULFATE 325 MG TABLET.DR PO SCH (08:52)
[2020-05-08] MEDS: METHYLPREDNISOLONE SOD SUCC 40MG/ML 1ML IVP SCH ×2 (08:52→21:19)
[2020-05-08] MEDS: AMLODIPINE BESYLATE 5 MG TAB PO SCH (08:52)
[2020-05-08] MEDS: ZINC SULFATE 220 CAPSULE PO SCH (08:53)
[2020-05-08] MEDS: ACETYLCYSTEINE 600 MG CAPSULE PO SCH ×2 (08:53→21:00)
[2020-05-08] MEDS: CLONAZEPAM 0.5 MG TABLET PO SCH ×2 (08:53→21:19)
[2020-05-08] MEDS: ENOXAPARIN SODIUM 60 MG/0.6 ML SQ SCH ×2 (08:53→21:20)
[2020-05-08] MEDS: ALBUTEROL INHALER 90MCG/INH IH SCH ×5 (10:00→21:20)
[2020-05-08 11:09] VITALS: BP 114/72
[2020-05-08 16:00] VITALS: BP 103/66
[2020-05-08 20:20] VITALS: BP 102/74
[2020-05-08 23:51] VITALS: BP 133/73
[2020-05-09 04:17] VITALS: BP 121/74
[2020-05-09 05:01] LABS: BASOPHILS % (AUTO) 0.3 % (0.0-5.0); EOSINOPHILS % (AUTO) 0.3 % (0.0-8.0); LYMPHOCYTES % (AUTO) 6.1 % (21.0-51.0); MEAN CORPUSCULAR HEMOGLOBIN 27.5 pg (27.0-33.0); MEAN CORPUSCULAR VOLUME 85.9 fL (79-99); MONOCYTES % (AUTO) 3.8 % (3.0-13.0); NEUTROPHILS % (AUTO) 87.1 % (40.0-77.0); PLATELET COUNT (AUTO) 277 K/uL (130-400); RED BLOOD CELL COUNT(AUTO) 5.24 MIL/uL (4.50-6.20); RED CELL DISTRIBUTION WIDTH 17.3 % (11.0-15.5); WHITE BLOOD COUNT (AUTO) 11.2 K/uL (4.8-10.8)
[2020-05-09] MEDS: BENZONATATE 100 MG CAPSULE PO SCH ×3 (05:09→22:13)
[2020-05-09 05:37] LABS: ALANINE AMINOTRANSFERASE 75 U/L (12-78); ALBUMIN 2.5 g/dL (3.5-5.0); ASPARTATE AMINOTRANSFERASE 36 U/L (10-37); BILIRUBIN,TOTAL 0.9 mg/dL (0.2-1.0); CARBON DIOXIDE 35 mmol/L (21-32); CHLORIDE 101 mmol/L (101-111); CREATININE 0.7 mg/dL (0.5-1.5); GLOMERULAR FILTR. RATE CALC 126 mL/min (>60); GLUCOSE,RANDOM 134 mg/dL (70-105); LACTATE DEHYDROGENASE 441 U/L (81-234); POTASSIUM 4.6 mmol/L (3.5-5.1); SODIUM SERUM 139 mmol/L (136-145); TOTAL PROTEIN, SERUM 6.1 g/dL (6.0-8.3); UREA NITROGEN, BLOOD 20 mg/dL (7-18)
[2020-05-09 05:43] LABS: CRP QUANTITATIVE < 2.00 mg/L (0.00-9.0)
[2020-05-09 08:00] VITALS: BP 138/87
[2020-05-09] MEDS: GUAIFENESIN-DM 200/20 MG 10 ML PO PRN (09:07)
[2020-05-09] MEDS: FERROUS SULFATE 325 MG TABLET.DR PO SCH (09:07)
[2020-05-09] MEDS: ASCORBIC ACID 500 MG TAB PO SCH (09:07)
[2020-05-09] MEDS: METOPROLOL TARTRATE 25 MG TAB PO SCH ×2 (09:07→22:13)
[2020-05-09] MEDS: METHYLPREDNISOLONE SOD SUCC 40MG/ML 1ML IVP SCH (09:07)
[2020-05-09] MEDS: CLONAZEPAM 0.5 MG TABLET PO SCH ×2 (09:07→22:13)
[2020-05-09] MEDS: AMLODIPINE BESYLATE 5 MG TAB PO SCH (09:07)
[2020-05-09] MEDS: FAMOTIDINE/PF 20 MG/2 ML VIAL IV SCH ×2 (09:07→22:13)
[2020-05-09] MEDS: ZINC SULFATE 220 CAPSULE PO SCH (09:07)
[2020-05-09] MEDS: ACETYLCYSTEINE 600 MG CAPSULE PO SCH ×3 (09:07→22:13)
[2020-05-09] MEDS: ENOXAPARIN SODIUM 60 MG/0.6 ML SQ SCH ×2 (09:08→22:13)
[2020-05-09] MEDS: ALBUTEROL INHALER 90MCG/INH IH SCH ×6 (10:00→22:17)
[2020-05-09 11:11] VITALS: BP 147/82
[2020-05-09 16:00] VITALS: BP 160/82
[2020-05-09 20:22] VITALS: BP 140/80
[2020-05-10 00:33] VITALS: BP 117/80
[2020-05-10 04:01] VITALS: BP 111/71
[2020-05-10 05:25] LABS: BASOPHILS % (AUTO) 0.4 % (0.0-5.0); HEMATOCRIT 44.9 % (42-54); MEAN CORPUSCULAR HEMOGLOBIN 27.6 pg (27.0-33.0); MEAN CORPUSCULAR HGB CONC 31.8 g/dL (32.0-36.0); MEAN CORPUSCULAR VOLUME 86.7 fL (79-99); MONOCYTES % (AUTO) 8.1 % (3.0-13.0); NEUTROPHILS % (AUTO) 71.4 % (40.0-77.0); PLATELET COUNT (AUTO) 258 K/uL (130-400); RED BLOOD CELL COUNT(AUTO) 5.18 MIL/uL (4.50-6.20); RED CELL DISTRIBUTION WIDTH 17.5 % (11.0-15.5); WHITE BLOOD COUNT (AUTO) 14.7 K/uL (4.8-10.8)
[2020-05-10] MEDS: BENZONATATE 100 MG CAPSULE PO SCH ×3 (05:25→21:14)
[2020-05-10 06:06] LABS: ALBUMIN 2.4 g/dL (3.5-5.0); BILIRUBIN,TOTAL 0.8 mg/dL (0.2-1.0); CREATININE 0.9 mg/dL (0.5-1.5); POTASSIUM 4.6 mmol/L (3.5-5.1); TOTAL PROTEIN, SERUM 5.9 g/dL (6.0-8.3)
[2020-05-10 07:34] VITALS: BP 118/77
[2020-05-10] MEDS: ENOXAPARIN SODIUM 60 MG/0.6 ML SQ SCH ×2 (08:41→21:13)
[2020-05-10] MEDS: ASCORBIC ACID 500 MG TAB PO SCH (08:42)
[2020-05-10] MEDS: CLONAZEPAM 0.5 MG TABLET PO SCH ×2 (08:42→21:13)
[2020-05-10] MEDS: ZINC SULFATE 220 CAPSULE PO SCH (08:42)
[2020-05-10] MEDS: AMLODIPINE BESYLATE 5 MG TAB PO SCH (08:42)
[2020-05-10] MEDS: METOPROLOL TARTRATE 25 MG TAB PO SCH ×2 (08:44→21:13)
[2020-05-10] MEDS: FERROUS SULFATE 325 MG TABLET.DR PO SCH (08:44)
[2020-05-10] MEDS: DEXAMETHASONE SOD PHOSPHATE 4 MG/ML 1ML VIAL IVP SCH (08:45)
[2020-05-10] MEDS: FAMOTIDINE/PF 20 MG/2 ML VIAL IV SCH ×2 (08:45→21:13)
[2020-05-10] MEDS: ALBUTEROL INHALER 90MCG/INH IH SCH ×4 (10:00→21:14)
[2020-05-10 10:26] VITALS: BP 109/59
[2020-05-10] MEDS: ACETYLCYSTEINE 600 MG CAPSULE PO SCH ×2 (11:01→21:13)
--- NOTE | 2020-05-10 12:31 | NUR ---
DC PLAN GAVE PACKET FOR CDA. HAD NURSE EXPLAIN THAT I WOULD BE CALLING AND EXPLAINING INFO. CALLED PATIENT ROOM. SPOKE TO PATIENT. EVEN DURING CONVERSATION BEGAN COUGHING AND SAT DOWN TO 86%. TRIED TO END CONVERSATION TO LET PATIENT BREATH BETTER DID NOT WANT TO AGGREVATE CONDITION. AT THE END OF CONVERSATION PATIENT WANTS TO THINK ABOUT IT. LET NURSE KNOW. Addendum: 05/10/20 at 1238 by AIDEN URIOSTEGUI RN CM Amended: Links added.
[2020-05-10 15:37] VITALS: BP 126/89
[2020-05-10] MEDS: GUAIFENESIN-DM 200/20 MG 10 ML PO PRN (16:37)
[2020-05-10 20:24] VITALS: BP 140/78
[2020-05-11 00:16] VITALS: BP 125/78
[2020-05-11] MEDS: ALBUTEROL INHALER 90MCG/INH IH SCH ×6 (01:07→21:04)
[2020-05-11 04:16] VITALS: BP_SYST 135; BP_SYST 160; BP_DIAS 79; BP_DIAS 91
[2020-05-11] MEDS: BENZONATATE 100 MG CAPSULE PO SCH ×3 (05:05→21:04)
[2020-05-11 05:53] LABS: BASOPHILS % (AUTO) 0.6 % (0.0-5.0); EOSINOPHILS % (AUTO) 2.4 % (0.0-8.0); HEMATOCRIT 44.8 % (42-54); LYMPHOCYTES % (AUTO) 17.8 % (21.0-51.0); MEAN CORPUSCULAR HEMOGLOBIN 27.3 pg (27.0-33.0); MEAN CORPUSCULAR HGB CONC 32.1 g/dL (32.0-36.0); MONOCYTES % (AUTO) 8.7 % (3.0-13.0); NEUTROPHILS % (AUTO) 66.6 % (40.0-77.0); PLATELET COUNT (AUTO) 262 K/uL (130-400); RED BLOOD CELL COUNT(AUTO) 5.27 MIL/uL (4.50-6.20); RED CELL DISTRIBUTION WIDTH 17.7 % (11.0-15.5); WHITE BLOOD COUNT (AUTO) 13.9 K/uL (4.8-10.8)
[2020-05-11 06:38] LABS: ALBUMIN 2.4 g/dL (3.5-5.0); CREATININE 0.8 mg/dL (0.5-1.5); POTASSIUM 3.8 mmol/L (3.5-5.1); TOTAL PROTEIN, SERUM 5.8 g/dL (6.0-8.3)
[2020-05-11 09:05] VITALS: BP 119/74
[2020-05-11] MEDS: DEXAMETHASONE SOD PHOSPHATE 4 MG/ML 1ML VIAL IVP SCH (09:34)
[2020-05-11] MEDS: ZINC SULFATE 220 CAPSULE PO SCH (09:34)
[2020-05-11] MEDS: FAMOTIDINE/PF 20 MG/2 ML VIAL IV SCH ×2 (09:34→21:04)
[2020-05-11] MEDS: FERROUS SULFATE 325 MG TABLET.DR PO SCH (09:34)
[2020-05-11] MEDS: CLONAZEPAM 0.5 MG TABLET PO SCH ×2 (09:35→21:04)
[2020-05-11] MEDS: ACETYLCYSTEINE 600 MG CAPSULE PO SCH ×2 (09:35→21:04)
[2020-05-11] MEDS: ENOXAPARIN SODIUM 60 MG/0.6 ML SQ SCH ×2 (09:35→21:04)
[2020-05-11] MEDS: AMLODIPINE BESYLATE 5 MG TAB PO SCH (09:35)
[2020-05-11] MEDS: ASCORBIC ACID 500 MG TAB PO SCH (09:35)
[2020-05-11] MEDS: METOPROLOL TARTRATE 25 MG TAB PO SCH ×2 (09:35→21:04)
[2020-05-11 12:00] VITALS: BP 126/79
[2020-05-11 16:00] VITALS: BP 123/69
--- NOTE | 2020-05-11 16:16 | NUR ---
KWAME PTS CALL CONCERN ABOUT THE PT CONDITION AND MENTAL STATUS BECAUSE SHE NOTICE SOME INCONGRUENCE IN HIS TEXT MESSAGES. PT IS EVALUATED AND AT THE MOMENT HE IS AAO X3. NO PROBLEMS WERE IDENTIFY, WAS GIVEN AN UPDATE ON PT OVERALL CONDITION AND VERBALIZED UNDERSTAND.
[2020-05-11 20:31] VITALS: BP 108/85
[2020-05-12] VITALS (7 sets, daily range): BP systolic 113–142; BP diastolic 66–87
[2020-05-12] MEDS: ALBUTEROL INHALER 90MCG/INH IH SCH ×6 (05:24→20:56)
[2020-05-12] MEDS: BENZONATATE 100 MG CAPSULE PO SCH ×3 (05:24→20:55)
[2020-05-12 07:55] LABS: BASOPHILS % (AUTO) 0.6 % (0.0-5.0); EOSINOPHILS % (AUTO) 2.3 % (0.0-8.0); HEMATOCRIT 46.2 % (42-54); LYMPHOCYTES % (AUTO) 20.3 % (21.0-51.0); MEAN CORPUSCULAR HEMOGLOBIN 27.5 pg (27.0-33.0); MEAN CORPUSCULAR HGB CONC 32.3 g/dL (32.0-36.0); MEAN CORPUSCULAR VOLUME 85.4 fL (79-99); MONOCYTES % (AUTO) 7.6 % (3.0-13.0); NEUTROPHILS % (AUTO) 64.7 % (40.0-77.0); PLATELET COUNT (AUTO) 282 K/uL (130-400); RED BLOOD CELL COUNT(AUTO) 5.41 MIL/uL (4.50-6.20); RED CELL DISTRIBUTION WIDTH 18.2 % (11.0-15.5); WHITE BLOOD COUNT (AUTO) 14.1 K/uL (4.8-10.8)
[2020-05-12 08:15] LABS: ALBUMIN 2.5 g/dL (3.5-5.0); BILIRUBIN,TOTAL 0.9 mg/dL (0.2-1.0); CREATININE 0.8 mg/dL (0.5-1.5); POTASSIUM 3.9 mmol/L (3.5-5.1); TOTAL PROTEIN, SERUM 6.1 g/dL (6.0-8.3)
--- NOTE | 2020-05-12 09:00 | NUR ---
DR. NAM EVALUATED AND ANSWERED ALL PT QUESTIONS. ALSO ORDER TO PLACE PT IN O2 NC AT 6-8 LITERS TOLERATED. AT THE MOMENT PT IN VM AT 50% WITH O2 AT 97-98%.
[2020-05-12] MEDS: CLONAZEPAM 0.5 MG TABLET PO SCH ×2 (09:45→20:54)
[2020-05-12] MEDS: METOPROLOL TARTRATE 25 MG TAB PO SCH ×2 (09:45→20:55)
[2020-05-12] MEDS: FAMOTIDINE/PF 20 MG/2 ML VIAL IV SCH ×2 (09:45→20:54)
[2020-05-12] MEDS: AMLODIPINE BESYLATE 5 MG TAB PO SCH (09:45)
[2020-05-12] MEDS: ENOXAPARIN SODIUM 60 MG/0.6 ML SQ SCH ×2 (09:45→20:55)
[2020-05-12] MEDS: FERROUS SULFATE 325 MG TABLET.DR PO SCH (09:45)
[2020-05-12] MEDS: DEXAMETHASONE SOD PHOSPHATE 4 MG/ML 1ML VIAL IVP SCH (09:45)
[2020-05-12] MEDS: ACETYLCYSTEINE 600 MG CAPSULE PO SCH (09:45)
[2020-05-12] MEDS: ASCORBIC ACID 500 MG TAB PO SCH (09:45)
[2020-05-12] MEDS: ZINC SULFATE 220 CAPSULE PO SCH (09:45)
--- NOTE | 2020-05-12 10:15 | NUR ---
RT EVALUATED THE PT AND TRY PUT PT ON NC AT 8 L PUT PT DID NOT TOLERATED EXPECTED AND PUT HIM ON NC AT 10 L, THIS TIME WITH NC AT 10 L PT RESPOND WELL AND IS WITH O2 SAT AT 97-98 %
[2020-05-13 03:41] VITALS: BP 153/80
[2020-05-13] MEDS: BENZONATATE 100 MG CAPSULE PO SCH ×3 (04:59→20:27)
[2020-05-13] MEDS: ACETAMINOPHEN 325 MG TAB PO PRN (05:00)
[2020-05-13 05:20] LABS: BASOPHILS % (AUTO) 0.5 % (0.0-5.0); EOSINOPHILS % (AUTO) 1.6 % (0.0-8.0); LYMPHOCYTES % (AUTO) 15.7 % (21.0-51.0); MEAN CORPUSCULAR HGB CONC 31.3 g/dL (32.0-36.0); MEAN CORPUSCULAR VOLUME 86.1 fL (79-99); MONOCYTES % (AUTO) 7.8 % (3.0-13.0); NEUTROPHILS % (AUTO) 69.7 % (40.0-77.0); PLATELET COUNT (AUTO) 290 K/uL (130-400); RED BLOOD CELL COUNT(AUTO) 5.34 MIL/uL (4.50-6.20); RED CELL DISTRIBUTION WIDTH 18.2 % (11.0-15.5); WHITE BLOOD COUNT (AUTO) 14.6 K/uL (4.8-10.8)
[2020-05-13 05:39] LABS: ALBUMIN 2.5 g/dL (3.5-5.0); BILIRUBIN,TOTAL 0.8 mg/dL (0.2-1.0); CREATININE 0.7 mg/dL (0.5-1.5); POTASSIUM 4.3 mmol/L (3.5-5.1); TOTAL PROTEIN, SERUM 6.2 g/dL (6.0-8.3)
[2020-05-13 08:42] VITALS: BP 138/76
[2020-05-13] MEDS: CLONAZEPAM 0.5 MG TABLET PO SCH ×2 (08:50→20:27)
[2020-05-13] MEDS: AMLODIPINE BESYLATE 5 MG TAB PO SCH (08:50)
[2020-05-13] MEDS: METOPROLOL TARTRATE 25 MG TAB PO SCH ×2 (08:50→20:27)
[2020-05-13] MEDS: ASCORBIC ACID 500 MG TAB PO SCH (08:50)
[2020-05-13] MEDS: FERROUS SULFATE 325 MG TABLET.DR PO SCH (08:50)
[2020-05-13] MEDS: FAMOTIDINE/PF 20 MG/2 ML VIAL IV SCH ×2 (08:51→20:27)
[2020-05-13] MEDS: ZINC SULFATE 220 CAPSULE PO SCH (08:51)
[2020-05-13] MEDS: DEXAMETHASONE SOD PHOSPHATE 4 MG/ML 1ML VIAL IVP SCH (08:51)
[2020-05-13] MEDS: ENOXAPARIN SODIUM 60 MG/0.6 ML SQ SCH ×2 (08:52→20:28)
[2020-05-13] MEDS: ALBUTEROL INHALER 90MCG/INH IH SCH ×4 (10:36→20:38)
[2020-05-13 13:17] VITALS: BP 133/83
[2020-05-13 16:00] VITALS: BP 143/63
[2020-05-13] MEDS: GUAIFENESIN-DM 200/20 MG 10 ML PO PRN (16:15)
[2020-05-13 20:23] VITALS: BP 144/80
[2020-05-13] MEDS: SODIUM CHLORIDE 45 ML SPRY NS PRN (20:46)
[2020-05-14 00:11] VITALS: BP 123/75
[2020-05-14] MEDS: ALBUTEROL INHALER 90MCG/INH IH SCH ×4 (03:05→17:46)
[2020-05-14] MEDS: ACETAMINOPHEN 325 MG TAB PO PRN (03:08)
[2020-05-14 04:12] VITALS: BP 129/83
[2020-05-14 08:58] VITALS: BP 129/82
[2020-05-14] MEDS: METOPROLOL TARTRATE 25 MG TAB PO SCH (09:31)
[2020-05-14] MEDS: BENZONATATE 100 MG CAPSULE PO SCH ×2 (09:31→14:00)
[2020-05-14] MEDS: ENOXAPARIN SODIUM 60 MG/0.6 ML SQ SCH (09:32)
[2020-05-14] MEDS: AMLODIPINE BESYLATE 5 MG TAB PO SCH (09:32)
[2020-05-14] MEDS: FERROUS SULFATE 325 MG TABLET.DR PO SCH (09:32)
[2020-05-14] MEDS: CLONAZEPAM 0.5 MG TABLET PO SCH ×2 (09:32→18:24)
[2020-05-14] MEDS: DEXAMETHASONE SOD PHOSPHATE 4 MG/ML 1ML VIAL IVP SCH (09:32)
[2020-05-14 11:30] VITALS: BP 122/77
--- NOTE | 2020-05-14 15:41 | NUR ---
DC PLAN DR. GRANADOS SPOKE TO PATIENT REGARDING CDA. PATIENT AGREED GAVE VERBAL CONSENT FOR CDA. LIT COSIGNED WITH NURSE JOSE. PACKET MADE AND EMAILED. PENDING CALL BACK. Addendum: 05/14/20 at 1544 by AIDEN URIOSTEGUI RN CM Amended: Links added.
[2020-05-14 16:32] VITALS: BP 131/86
--- NOTE | 2020-05-14 17:10 | NUR ---
DC PLAN DR. ALDANA CALLED SAID THAT PATIENT ACCEPTED. LET DR. GRANADOS, NURSE AND DIRECTOR KNOW. MOT SIGNED IN CHART. INFO IN CHART. PENDING ORDER. Addendum: 05/14/20 at 1711 by AIDEN URIOSTEGUI RN CM Amended: Links added.
--- NOTE | 2020-05-14 19:29 | NUR ---
PATIENT DISCHARGED PATIENT IS LEAVING THIS FACILITY AT THIS TIME ON STRETCHER WITH EMS TRANSPORTERS X2, PT IS ALERT AND ORIENTED X3, NO DISTRESS NOTED, O2 IN USE, NO SOB OR DISTRESS, PICC LINE REMAINS TO LEFT UPPER ARM, COVERED WITH BANDAGE, NO ACTIVE BLEEDING, NO S/SX OF INFECTION NOTED. ALL ORDERS AND REPORTS DONE BY PREVIOUS NURSE.
== END 2020-05-14 19:25 | DRG 177 ==
LOC: EDH 22:15 → EDHIP 04-14 04:14 → 3AH 04-14 20:25 → 2AH 04-25 14:30
PROVIDERS: ADMIT Family Medicine; ATTEND Family Medicine
PROC: XW13325 Transfusion of Convalescent Plasma (Nonautologous) into Peripheral Vein, Percutaneous Approach, New Technology Group 5 (ICD-10-PCS; 2020-04-15)
PROC: XW033E5 Introduction of Remdesivir Anti-infective into Peripheral Vein, Percutaneous Approach, New Technology Group 5 (ICD-10-PCS; 2020-04-15)
PROC: 5A09457 Assistance with Respiratory Ventilation, 24-96 Consecutive Hours, Continuous Positive Airway Pressure (ICD-10-PCS; 2020-04-16)
PROC: XW033E5 Introduction of Remdesivir Anti-infective into Peripheral Vein, Percutaneous Approach, New Technology Group 5 (ICD-10-PCS; 2020-04-16)
PROC: 5A09357 Assistance with Respiratory Ventilation, Less than 24 Consecutive Hours, Continuous Positive Airway Pressure (ICD-10-PCS; principal; 2020-04-19)
PROC: XW13325 Transfusion of Convalescent Plasma (Nonautologous) into Peripheral Vein, Percutaneous Approach, New Technology Group 5 (ICD-10-PCS; 2020-04-19)
PROC: 5A09457 Assistance with Respiratory Ventilation, 24-96 Consecutive Hours, Continuous Positive Airway Pressure (ICD-10-PCS; 2020-04-20)
PROC: 5A09457 Assistance with Respiratory Ventilation, 24-96 Consecutive Hours, Continuous Positive Airway Pressure (ICD-10-PCS; 2020-04-22)
PROC: 5A09557 Assistance with Respiratory Ventilation, Greater than 96 Consecutive Hours, Continuous Positive Airway Pressure (ICD-10-PCS; 2020-04-25)
PROC: 02HV33Z Insertion of Infusion Device into Superior Vena Cava, Percutaneous Approach (ICD-10-PCS; 2020-04-29)
PROC: 5A09357 Assistance with Respiratory Ventilation, Less than 24 Consecutive Hours, Continuous Positive Airway Pressure (ICD-10-PCS; 2020-05-03)
PROC: 5A09357 Assistance with Respiratory Ventilation, Less than 24 Consecutive Hours, Continuous Positive Airway Pressure (ICD-10-PCS; 2020-05-04)
DX: U07.1 COVID-19 (principal); J12.89 Other viral pneumonia; J96.01 Acute respiratory failure with hypoxia; M62.82 Rhabdomyolysis; Z68.42 Body mass index [BMI] 45.0-49.9, adult; E87.1 Hypo-osmolality and hyponatremia; K80.20 Calculus of gallbladder without cholecystitis without obstruction; E87.6 Hypokalemia; J98.2 Interstitial emphysema; E66.01 Morbid (severe) obesity due to excess calories; F41.9 Anxiety disorder, unspecified; J45.909 Unspecified asthma, uncomplicated; I10 Essential (primary) hypertension; E78.00 Pure hypercholesterolemia, unspecified; D72.828 Other elevated white blood cell count; E78.5 Hyperlipidemia, unspecified; Z79.899 Other long term (current) drug therapy; Z87.891 Personal history of nicotine dependence
CPT/HCPCS: 36415; 36430; 36600; 71045; 71275; 80048; 80053; 80076; 81001; 82550; 82728; 82803; 82948; 83605; 83615; 83735; 83880; 84100; 84145; 84484; 85025; 85378; 85610; 85730; 86140; 86850; 86900; 86901; 86927; 87040; 87088; 87426; 87804; 93005; 94660; 97039; C1894; G0378; J0360; J0456; J0696; J1100; J1650; J2060; J2185; J2405; J2920; J2930; J3490; J7040; J7050; J7608; Q9967; U0003